=== PATIENT | male | born 1975 | race Caucasian/White ===

== ENCOUNTER 2016-11-24 06:04 | Emergency (ER) | payer BC ==
[2016-11-24] MEDS ORDERED: Ketorolac 60 MG/2 ML SDV IM ONE (06:16)
--- NOTE | 2016-11-24 06:21 | EDM.PDOC ---
ED HPI GENERAL MEDICAL PROBLEM - General Stated Complaint: LOWER BACK PAIN Time Seen by Provider: 11/24/16 06:12 - History of Present Illness INITIAL COMMENTS - FREE TEXT/NARRATIVE: HISTORY AND PHYSICAL: History of present illness: Patient's 41-year-old white male presents with a concern of 2 week history of left groin and testicle pain with some radiation to his left lower back the testicular pain seems to resolve completely this now is more in his groin with radiation to his lower back he denies urethral discharge denies trauma denies numbness weakness incontinence or retention of bowel or bladder this is somewhat worse with movement somewhat better with rest. Review of systems: As per history of present illness and below otherwise all systems reviewed and negative. Past medical history: As per history of present illness and as reviewed below otherwise noncontributory. Surgical history: As per history of present illness and as reviewed below otherwise noncontributory. Social history: No reported history of drug or alcohol abuse. Family history: As per history of present illness and as reviewed below otherwise noncontributory. Physical exam: HEENT: Atraumatic, normocephalic, pupils reactive, negative for conjunctival pallor or scleral icterus, mucous membranes moist, throat clear, neck supple, nontender, trachea midline. Lungs: Clear to auscultation, breath sounds equal bilaterally, chest nontender. Heart: S1S2, regular, negative for clicks, rubs, or JVD. Abdomen: Soft, nondistended, nontender. Negative for masses or hepatosplenomegaly. Negative for costovertebral tenderness. Pelvis: Stable nontender. Genitourinary: Penis and testicles are unremarkable there's no rash no lesions no discharge no obvious hernia no masses. Rectal: Deferred. Extremities: Atraumatic, negative for cords or calf pain. Neurovascular unremarkable. Neuro: Awake, alert, oriented. Cranial nerves II through XII unremarkable. Cerebellum unremarkable. Motor and sensory unremarkable throughout. Exam nonfocal. Back: Patient has some tenderness in the left lower back somewhat over his sciatic notch this is not consistent on exam is no vertebral body or point tenderness is able stand on his toes and back on his heels Diagnostics: CBC CMP UA CT abdomen and pelvis Therapeutics: Toradol 60 mg IM Impression: #1 intermittent left groin/testicle pain resolved #2 left lower back pain Definitive disposition and diagnosis as appropriate pending reevaluation and review of above. - Related Data Allergies Allergy/AdvReac Type Severity Reaction Status Date / Time No Known Allergies Allergy Verified 11/04/15 06:18 Home Meds: Home Meds . [No Known Home Meds] 11/04/15 [History] Past Medical History - Past Health History Medical/Surgical History: Denies Medical/Surgical History Cardiovascular History: Reports: None Other Cardiovascular History: 2012: heart attack Respiratory History: Reports: Asthma Gastrointestinal History: Reports: GERD Genitourinary History: Reports: None Musculoskeletal History: Reports: None Neurological History: Reports: None Psychiatric History: Reports: None Endocrine/Metabolic History: Reports: None Hematologic History: Reports: None Immunologic History: Reports: None Oncologic (Cancer) History: Reports: None Dermatologic History: Reports: None - Infectious Disease History Infectious Disease History: Reports: Chicken Pox - Past Surgical History Head Surgeries/Procedures: Reports: None HEENT Surgical History: Reports: Tonsillectomy Social & Family History - Family History Family Medical History: Noncontributory - Tobacco Use Smoking Status *Q: Current Every Day Smoker Years of Tobacco use: 20 Packs/Tins Daily: 1.5 Used Tobacco, but Quit: Yes Month Tobacco Last Used: 01/06/14 - Alcohol Use Days Per Week of Alcohol Use: 7 Number of Drinks Per Day: 6 Total Drinks Per Week: 42 - Recreational Drug Use Recreational Drug Use: Yes Drug Use in Last 12 Months: Yes Recreational Drug Type: Reports: Methamphetamine Recreational Drug Use Frequency: Daily Recreational Drug Last Use: 4 yrs ED ROS GENERAL - Review of Systems Review Of Systems: ROS reveals no pertinent complaints other than HPI. ED EXAM, GENERAL - Physical Exam Exam: See Below (See dictation) Course - Vital Signs Last Recorded V/S: Last Vital Signs Temp 36.0 C 11/24/16 06:12 Pulse 80 11/24/16 06:24 Resp 18 11/24/16 06:24 BP 132/85 11/24/16 06:24 Pulse Ox 97 11/24/16 06:24 - Orders/Labs/Meds Orders: Active Orders 24 hr Category Date Time Status Abdomen Pelvis wo Cont [CT] Stat Exams 11/24/16 06:09 Taken Labs: Laboratory Tests 11/24/16 11/24/16 11/24/16 Range/Units 06:10 06:18 06:18 WBC 8.31 (4.0-11.0) K/uL RBC 5.18 (4.50-5.90) M/uL Hgb 16.2 (13.0-17.0) g/dL Hct 46.6 (38.0-50.0) % MCV 90.0 (80.0-98.0) fL MCH 31.3 (27.0-32.0) pg MCHC 34.8 (31.0-37.0) g/dL RDW Std Deviation 44.0 (28.0-62.0) fl RDW Coeff of [place] 14 (11.0-15.0) % Plt Count 228 (150-400) K/uL MPV 10.50 (7.40-12.00) fL Neut % (Auto) 44.7 L (48.0-80.0) % Lymph % (Auto) 41.4 H (16.0-40.0) % [place] % (Auto) 11.0 (0.0-15.0) % Eos % (Auto) 2.4 (0.0-7.0) % Baso % (Auto) 0.5 (0.0-1.5) % Neut # (Auto) 3.7 (1.4-5.7) K/uL Lymph # (Auto) 3.4 H (0.6-2.4) K/uL [place] # (Auto) 0.9 H (0.0-0.8) K/uL Eos # (Auto) 0.2 (0.0-0.7) K/uL Baso # (Auto) 0.0 (0.0-0.1) K/uL Nucleated RBC % 0.0 /100WBC Nucleated RBCs # 0 K/uL Sodium 142 (136-146) mmol/L Potassium 4.1 (3.5-5.1) mmol/L Chloride 108 (98-110) mmol/L Carbon Dioxide 24 (21-31) mmol/L BUN 19 (6.0-23.0) mg/dL Creatinine 1.5 (0.6-1.5) mg/dL Est Cr Clr Drug Dosing 66.92 mL/min Estimated GFR (MDRD) 51.6 ml/min Glucose 90 (60-110) mg/dL Calcium 9.3 (8.8-10.8) mg/dL Total Bilirubin 0.3 (0.1-1.5) mg/dL AST 25 (5-40) IU/L ALT 61 H (8-54) IU/L Alkaline Phosphatase 70 (40-150) Total Protein 7.5 (6.0-8.0) g/dL Albumin 4.3 (3.5-5.0) g/dL Globulin 3.2 (2.0-3.5) g/dL Albumin/Globulin Ratio 1.3 (1.3-2.8) Urine Color YELLOW Urine Appearance CLEAR Urine pH 6.0 (5.0-8.0) Ur Specific [place] >= 1.030 (1.001-1.035) Urine Protein NEGATIVE (NEGATIVE) mg/dL Urine Glucose (UA) NEGATIVE (NEGATIVE) mg/dL Urine Ketones NEGATIVE (NEGATIVE) mg/dL Urine Occult Blood NEGATIVE (NEGATIVE) Urine Nitrite NEGATIVE (NEGATIVE) Urine Bilirubin NEGATIVE (NEGATIVE) Urine Urobilinogen 0.2 (<2.0) EU/dL Ur Leukocyte Esterase TRACE (NEGATIVE) Urine RBC 0-1 (0-2/HPF) Urine WBC 1-3 (0-5/HPF) Ur Epithelial Cells RARE (NONE-FEW) Urine Bacteria FEW (NEGATIVE) Urine Mucus LIGHT (NONE-MOD) Meds: Medications Discontinued Medications Generic Name Dose Route Start Last Admin Trade Name Flavio PRN Reason Stop Dose Admin Ketorolac Tromethamine 60 mg 11/24/16 06:16 11/24/16 06:22 Toradol IM 11/24/16 06:17 60 mg ONETIME ONE Administration Departure - Departure Time of Disposition: 06:16 Disposition: Home, Self-Care 01 Condition: Good Clinical Impression: Groin pain, Back pain - Discharge Information Additional Instructions: The following information is given to patients seen in the emergency department who are being discharged to home. This information is to outline your options for follow-up care. We provide all patients seen in our emergency department with a follow-up referral. The need for follow-up, as well as the timing and circumstances, are variable depending upon the specifics of your emergency department visit. If you don't have a primary care physician on staff, we will provide you with a referral. We always advise you to contact your personal physician following an emergency department visit to inform them of the circumstance of the visit and for follow-up with them and/or the need for any referrals to a consulting specialist. The emergency department will also refer you to a specialist when appropriate. This referral assures that you have the opportunity for followup care with a specialist. All of these measure are taken in an effort to provide you with optimal care, which includes your followup. Under all circumstances we always encourage you to contact your private physician who remains a resource for coordinating your care. When calling for followup care, please make the office aware that this follow-up is from your recent emergency room visit. If for any reason you are refused follow-up, please contact the [facility] emergency department at and asked to speak to the emergency department charge nurse. [facility] Primary Care [address] [place] [id number] [facility] Specialty Care - Urology [address] [place] [id number] Follow-up primary care urology as needed as discussed alternative prescribed return as needed as discussed - My Orders Last 24 Hours: My Active Orders 11/24/16 06:09 Abdomen Pelvis wo Cont [CT] Stat - Assessment/Plan Last 24 Hours: My Active Orders 11/24/16 06:09 Abdomen Pelvis wo Cont [CT] Stat
[2016-11-24 07:24] VITALS: BP 138/88
--- NOTE | 2016-11-24 11:59 | CT ---
EXAM DATE: 11/24/16 PATIENT'S AGE: 41 Patient: DMITRIY MEJÍA Facility: [place], [place] Site . Site : 1975 Study: CT Abdomen/Pelvis [id number]/19/2017 6:47:01 AM Ordering Physician: Doctor Boyd Final Report: INDICATION: SYMPTOMS BEGAN X 2 WEEKS AGO GROIN PAIN WITH RADIATION POSTERIORLY NOW HISTORY: Groin pain. COMPARISON: None. TECHNIQUE: CT of the abdomen and pelvis. No intravenous contrast. Coronal/sagittal reconstruction images. FINDINGS: Lung bases: There is no pleural or pericardial effusion. The heart size is normal. There is no acute airspace disease. There is no basilar pneumothorax. Abdomen/pelvis: Low-density hepatic lesions are too small further characterize, but likely benign cysts. No solid hepatic mass. No intrahepatic biliary dilatation. No perihepatic ascites. No adrenal mass. No hydronephrosis. No perinephric edema. Spleen size is normal. No pancreatic mass or pancreatic duct dilation. No glandular atrophy. There is no obstructive urolith. Calcifications in the pelvis are compatible with phleboliths. Prostate is within normal limits. There is no wall thickening within the small bowel or colon. There is diverticulosis. No findings for diverticulitis. No small bowel or colonic obstruction. Normal caliber appendix. No abdominal aortic aneurysm. No abdominal or pelvic lymphadenopathy. The bone windows demonstrate no suspicious lytic or blastic bone lesions. The alignment is preserved. IMPRESSION: 1. There are no acute findings seen to explain the patient`s abdominal pain. 2. There is no obstructive urolith, hydronephrosis, or perinephric edema. Calcifications in the pelvis represent phleboliths. 3. Diverticulosis of the colon. No associated inflammatory changes. 4. Normal caliber appendix. Dictated by John Gar MD @ 11/24/2016 7:00:31 AM Dictated by: John Gar MD @ 11/24/2016 07:00:45 (Electronic Signature) Report Signed by Proxy. [facility] HOSPITALEstefani
== END 2016-11-24 07:23 | disposition home or self-care (01) ==
LOC: MW.ED 06:04
DX: N50.812 Left testicular pain (principal); R10.30 Lower abdominal pain, unspecified; M54.5 Low back pain; J45.909 Unspecified asthma, uncomplicated; K21.9 Gastro-esophageal reflux disease without esophagitis; F17.210 Nicotine dependence, cigarettes, uncomplicated; Z98.890 Other specified postprocedural states
CPT/HCPCS: 36415; 74176; 80053; 81001; 85025; 96372; 99284; J1885; 99283

== ENCOUNTER 2017-03-31 16:38 | Emergency (ER) | payer SELFPAY ==
--- NOTE | 2017-03-31 17:14 | EDM.PDOC ---
ED HPI GENERAL MEDICAL PROBLEM - General Chief Complaint: Lower Extremity Injury/Pain Stated Complaint: LEFT FOOT PAIN Time Seen by Provider: 03/31/17 17:09 - History of Present Illness INITIAL COMMENTS - FREE TEXT/NARRATIVE: HISTORY AND PHYSICAL: History of present illness: Patient's 42-year-old white male with history of gout who presents with concern of pain in his first digit of his left foot and ankle similar to prior acute gouty episodes he denies fevers chills nausea vomiting trauma or other concern Review of systems: As per history of present illness and below otherwise all systems reviewed and negative. Past medical history: As per history of present illness and as reviewed below otherwise noncontributory. Surgical history: As per history of present illness and as reviewed below otherwise noncontributory. Social history: No reported history of drug or alcohol abuse. Family history: As per history of present illness and as reviewed below otherwise noncontributory. Physical exam: HEENT: Atraumatic, normocephalic, pupils reactive, negative for conjunctival pallor or scleral icterus, mucous membranes moist, throat clear, neck supple, nontender, trachea midline. Lungs: Clear to auscultation, breath sounds equal bilaterally, chest nontender. Heart: S1S2, regular, negative for clicks, rubs, or JVD. Abdomen: Soft, nondistended, nontender. Negative for masses or hepatosplenomegaly. Negative for costovertebral tenderness. Pelvis: Stable nontender. Genitourinary: Deferred. Rectal: Deferred. Extremities: Significant tenderness in the region of the distal first metatarsal left foot minimal erythema neurovascular exam is unremarkable Neuro: Awake, alert, oriented. Cranial nerves II through XII unremarkable. Cerebellum unremarkable. Motor and sensory unremarkable throughout. Exam nonfocal. Diagnostics: None Therapeutics: None Impression: # 1 acute gouty arthritis Definitive disposition and diagnosis as appropriate pending reevaluation and review of above. left great toe Pain Score (Numeric/FACES): 10 - Related Data Allergies Allergy/AdvReac Type Severity Reaction Status Date / Time No Known Allergies Allergy Verified 03/31/17 17:05 Home Meds: Home Meds . [No Known Home Meds] 11/04/15 [History] Past Medical History - Past Health History Medical/Surgical History: Denies Medical/Surgical History HEENT History: Reports: None Cardiovascular History: Reports: Other (See Below) Other Cardiovascular History: 2012: heart attack Respiratory History: Reports: Asthma Gastrointestinal History: Reports: GERD Genitourinary History: Reports: None Musculoskeletal History: Reports: None Neurological History: Reports: None Psychiatric History: Reports: None Endocrine/Metabolic History: Reports: None Hematologic History: Reports: None Immunologic History: Reports: None Oncologic (Cancer) History: Reports: None Dermatologic History: Reports: None - Infectious Disease History Infectious Disease History: Reports: Chicken Pox - Past Surgical History Head Surgeries/Procedures: Reports: None HEENT Surgical History: Reports: Tonsillectomy Cardiovascular Surgical History: Reports: None Respiratory Surgical History: Reports: None GI Surgical History: Reports: None Male Surgical History: Reports: None Endocrine Surgical History: Reports: None Neurological Surgical History: Reports: None Musculoskeletal Surgical History: Reports: None Dermatological Surgical History: Reports: None Social & Family History - Family History Family Medical History: Noncontributory Oncologic: Reports: Colon, Other (See Below) Other Oncologic Family History: testicle - Tobacco Use Smoking Status *Q: Current Every Day Smoker Years of Tobacco use: 30 Packs/Tins Daily: 0.4 Used Tobacco, but Quit: Yes Month Tobacco Last Used: 01/06/14 - Caffeine Use Caffeine Use: Reports: Coffee - Alcohol Use Days Per Week of Alcohol Use: 7 Number of Drinks Per Day: 6 Total Drinks Per Week: 42 - Recreational Drug Use Recreational Drug Use: No Drug Use in Last 12 Months: Yes Recreational Drug Type: Reports: Methamphetamine Recreational Drug Use Frequency: Daily Recreational Drug Last Use: 4 yrs Review of Systems - Review of Systems Review Of Systems: ROS reveals no pertinent complaints other than HPI. ED EXAM, GENERAL - Physical Exam Exam: See Below (See dictation) Course - Vital Signs Last Recorded V/S: Last Vital Signs Temp 36.6 C 03/31/17 17:05 Pulse 96 03/31/17 17:05 Resp 18 03/31/17 17:05 BP 134/89 03/31/17 17:05 Pulse Ox 98 03/31/17 17:05 Departure - Departure Time of Disposition: 17:12 Disposition: Home, Self-Care 01 Condition: Good Clinical Impression: Gout attack - Discharge Information Referrals: PCP,None [Primary Care Provider] - Additional Instructions: The following information is given to patients seen in the emergency department who are being discharged to home. This information is to outline your options for follow-up care. We provide all patients seen in our emergency department with a follow-up referral. The need for follow-up, as well as the timing and circumstances, are variable depending upon the specifics of your emergency department visit. If you don't have a primary care physician on staff, we will provide you with a referral. We always advise you to contact your personal physician following an emergency department visit to inform them of the circumstance of the visit and for follow-up with them and/or the need for any referrals to a consulting specialist. The emergency department will also refer you to a specialist when appropriate. This referral assures that you have the opportunity for followup care with a specialist. All of these measure are taken in an effort to provide you with optimal care, which includes your followup. Under all circumstances we always encourage you to contact your private physician who remains a resource for coordinating your care. When calling for followup care, please make the office aware that this follow-up is from your recent emergency room visit. If for any reason you are refused follow-up, please contact the [facility] emergency department at and asked to speak to the emergency department charge nurse. [facility] Primary Care [address] [place] [id number] [facility] Specialty Care - Orthopedic Clinic Professional [facility] [address] [place] [address], [address] [place] [address] Indocin as prescribed follow-up clinic and/or orthopedic clinic call to schedule appointment return as needed as discussed diet as directed avoid alcohol
[2017-03-31] MEDS ORDERED: Ketorolac 60 MG/2 ML SDV IM ONE (17:29)
[2017-03-31 17:49] VITALS: BP 120/78
== END 2017-03-31 17:45 | disposition home or self-care (01) ==
LOC: MW.ED 16:38
DX: M10.9 Gout, unspecified (principal); F17.210 Nicotine dependence, cigarettes, uncomplicated
CPT/HCPCS: 96372; 99283; J1885; 99282

== ENCOUNTER 2017-06-09 10:11 | Emergency (ER) | payer SELFPAY ==
--- NOTE | 2017-06-09 10:51 | EDM.PDOC ---
ED HPI GENERAL MEDICAL PROBLEM - General Chief Complaint: Lower Extremity Injury/Pain Stated Complaint: LT FOOT HURTS Time Seen by Provider: 06/09/17 10:35 Source of Information: Reports: Patient History Limitations: Reports: No Limitations - History of Present Illness INITIAL COMMENTS - FREE TEXT/NARRATIVE: HISTORY AND PHYSICAL: History of present illness: [Patient comes to the emergency room complaining of left great toe pain. Onset was 4 days ago and has gradually worsened. Denies trauma and injury. Has a long history of gout. Admits to alcohol use. most recently been drinking whiskey but he is cutting back on intake due to frequent gout flareups. He does not have a local primary care provider but wishes to establish. Has not taken any medication for his symptoms. No fever or chills. No chest pain shortness of breath and difficulty breathing. No abdominal pain. Denies any other medical conditions. No hypertension or kidney disease diabetes or heart disease.] Review of systems: As per history of present illness and below otherwise all systems reviewed and negative. Past medical history: As per history of present illness and as reviewed below otherwise noncontributory. Surgical history: As per history of present illness and as reviewed below otherwise noncontributory. Social history: No reported history of drug or alcohol abuse. Family history: As per history of present illness and as reviewed below otherwise noncontributory. Physical exam: HEENT: Atraumatic, normocephalic. Oral mucous membranes are pink and moist. Lungs: Clear to auscultation, breath sounds equal bilaterally. Heart: S1S2, regular rate and rhythm. Abdomen: Soft, nondistended, nontender. Pelvis: Stable nontender. Genitourinary: Deferred. Rectal: Deferred. Extremities: L great to is brightly erythematous and swollen. Exquisitely tender to palpation. Redness over medial metatarsals. Is otherwise atraumatic. Neurovascular unremarkable. Neuro: Awake, alert, oriented. Motor and sensory unremarkable throughout. Exam nonfocal. Diagnostics: [CBC, BMP, uric acid Impression: [gout, L toe] Plan: [Rx for indomethacin 50mg (#21) si po TID 0 RF's. Uric acid is elevated at 7.8. White blood cell 6.49, B1 20, creatinine 1.3. No ibuprofen with indomethacin. Push fluids, rest and elevate. Establish with local PCP. Referral given.] Definitive disposition and diagnosis as appropriate pending reevaluation and review of above. left foot Pain Score (Numeric/FACES): 7 - Related Data Allergies Allergy/AdvReac Type Severity Reaction Status Date / Time No Known Allergies Allergy Verified 06/09/17 10:18 Home Meds: Home Meds . [No Known Home Meds] 11/04/15 [History] Past Medical History - Past Health History Medical/Surgical History: Denies Medical/Surgical History HEENT History: Reports: None Cardiovascular History: Reports: Other (See Below) Other Cardiovascular History: 2012: heart attack Respiratory History: Reports: Asthma Gastrointestinal History: Reports: GERD Genitourinary History: Reports: None Musculoskeletal History: Reports: None Neurological History: Reports: None Psychiatric History: Reports: None Endocrine/Metabolic History: Reports: None Hematologic History: Reports: None Immunologic History: Reports: None Oncologic (Cancer) History: Reports: None Dermatologic History: Reports: None - Infectious Disease History Infectious Disease History: Reports: Chicken Pox - Past Surgical History Head Surgeries/Procedures: Reports: None HEENT Surgical History: Reports: Tonsillectomy Cardiovascular Surgical History: Reports: None Respiratory Surgical History: Reports: None GI Surgical History: Reports: None Male Surgical History: Reports: None Endocrine Surgical History: Reports: None Neurological Surgical History: Reports: None Musculoskeletal Surgical History: Reports: None Dermatological Surgical History: Reports: None Social & Family History - Family History Family Medical History: Noncontributory Oncologic: Reports: Colon, Other (See Below) Other Oncologic Family History: testicle - Tobacco Use Smoking Status *Q: Current Every Day Smoker Years of Tobacco use: 25 Packs/Tins Daily: 0.5 Used Tobacco, but Quit: Yes Month/Year Tobacco Last Used: 01/06/14 - Caffeine Use Caffeine Use: Reports: Coffee - Alcohol Use Days Per Week of Alcohol Use: 7 Number of Drinks Per Day: 6 Total Drinks Per Week: 42 - Recreational Drug Use Recreational Drug Use: Yes Drug Use in Last 12 Months: No Recreational Drug Type: Reports: Methamphetamine Recreational Drug Use Frequency: Daily Recreational Drug Last Use: 4 yrs Review of Systems - Review of Systems Review Of Systems: ROS reveals no pertinent complaints other than HPI. ED EXAM, GENERAL - Physical Exam Exam: See Below Course - Vital Signs Last Recorded V/S: Last Vital Signs Temp 97.6 F 06/09/17 10:18 Pulse 87 06/09/17 11:45 Resp 18 06/09/17 11:45 BP 116/81 06/09/17 11:45 Pulse Ox 99 06/09/17 11:45 - Orders/Labs/Meds Labs: Laboratory Tests 06/09/17 06/09/17 Range/Units 10:48 10:48 WBC 6.49 (4.0-11.0) K/uL RBC 5.21 (4.50-5.90) M/uL Hgb 16.0 (13.0-17.0) g/dL Hct 45.9 (38.0-50.0) % MCV 88.1 (80.0-98.0) fL MCH 30.7 (27.0-32.0) pg MCHC 34.9 (31.0-37.0) g/dL RDW Std Deviation 41.9 (28.0-62.0) fl RDW Coeff of Howard 13 (11.0-15.0) % Plt Count 222 (150-400) K/uL MPV 10.40 (7.40-12.00) fL Neut % (Auto) 55.0 (48.0-80.0) % Lymph % (Auto) 31.7 (16.0-40.0) % [place] % (Auto) 10.6 (0.0-15.0) % Eos % (Auto) 2.2 (0.0-7.0) % Baso % (Auto) 0.5 (0.0-1.5) % Neut # (Auto) 3.6 (1.4-5.7) K/uL Lymph # (Auto) 2.1 (0.6-2.4) K/uL [place] # (Auto) 0.7 (0.0-0.8) K/uL Eos # (Auto) 0.1 (0.0-0.7) K/uL Baso # (Auto) 0.0 (0.0-0.1) K/uL Nucleated RBC % 0.0 /100WBC Nucleated RBCs # 0 K/uL Sodium 138 (136-148) mmol/L Potassium 4.1 (3.5-5.1) mmol/L Chloride 103 (98-107) mmol/L Carbon Dioxide 23.3 (21.0-32.0) mmol/L BUN 20 H (7.0-18.0) mg/dL Creatinine 1.3 (0.8-1.3) mg/dL Est Cr Clr Drug Dosing 76.43 mL/min Estimated GFR (MDRD) > 60.0 ml/min Glucose 104 (74-106) mg/dL Uric Acid 7.8 H (2.6-7.2) mg/dL Calcium 9.4 (8.5-10.1) mg/dL Departure - Departure Time of Disposition: 11:15 Disposition: Home, Self-Care 01 Condition: Good Clinical Impression: Gout - Discharge Information Instructions: Gout, [id number] Referrals: PCP,None [Primary Care Provider] - Forms: ED Department Discharge Additional Instructions: The following information is given to patients seen in the emergency department who are being discharged to home. This information is to outline your options for follow-up care. We provide all patients seen in our emergency department with a follow-up referral. The need for follow-up, as well as the timing and circumstances, are variable depending upon the specifics of your emergency department visit. If you don't have a primary care physician on staff, we will provide you with a referral. We always advise you to contact your personal physician following an emergency department visit to inform them of the circumstance of the visit and for follow-up with them and/or the need for any referrals to a consulting specialist. The emergency department will also refer you to a specialist when appropriate. This referral assures that you have the opportunity for follow-up care with a specialist. All of these measure are taken in an effort to provide you with optimal care, which includes your follow-up. Under all circumstances we always encourage you to contact your private physician who remains a resource for coordinating your care. When calling for follow-up care, please make the office aware that this follow-up is from your recent emergency room visit. If for any reason you are refused follow-up, please contact the [facility] emergency department at and asked to speak to the emergency department charge nurse. [address] [address] Status care with a provider at the clinic listed above and follow-up there in 48 -72 hours. Do not take ibuprofen with indomethacin. Drink plenty of fluids. Return to ER as needed as discussed.
[2017-06-09 11:30] LABS: CHLORIDE,CL 103 mmol/L (98-107); SODIUM,NA 138 mmol/L (136-148)
[2017-06-09 11:50] VITALS: BP 116/81
== END 2017-06-09 11:45 | disposition home or self-care (01) ==
LOC: MW.ED 10:11
DX: M10.9 Gout, unspecified (principal); Z87.891 Personal history of nicotine dependence
CPT/HCPCS: 36415; 80048; 84550; 85025; 99283

== ENCOUNTER 2017-08-02 06:12 | Emergency (ER) | payer OTHER ==
--- NOTE | 2017-08-02 06:26 | EDM.PDOC ---
<Imtiaz Guardado - Last Filed: 08/02/17 06:38> ED HPI GENERAL MEDICAL PROBLEM - General Chief Complaint: Lower Extremity Injury/Pain Stated Complaint: PAIN IN RIGHT BIG TOE Time Seen by Provider: 08/02/17 06:25 Source of Information: Reports: Patient - History of Present Illness INITIAL COMMENTS - FREE TEXT/NARRATIVE: HISTORY AND PHYSICAL: History of present illness: 42-year-old male presenting to the [facility] department with chief complaint of right great toe pain starting last evening with past medical history of gout. patient states that last evening around 9 PM he began to have acute right toe pain. States that these had gout before in the other foot but this pain was more severe. Denies any associated fevers, chills, malaise or other signs of systemic infection. Up until this he has been feeling his normal self and has had no recent illnesses. Denies any history of ingrown toenails. The big toe is swollen and red which has progressed since last evening. Currently denies any chest pain, palpitations, shortness of breath, syncopal episodes, focal neurologic deficits. Review of systems: As per history of present illness and below otherwise all systems reviewed and negative. Past medical history: As per history of present illness and as reviewed below otherwise noncontributory. Surgical history: As per history of present illness and as reviewed below otherwise noncontributory. Social history: No reported history of drug or alcohol abuse. Family history: As per history of present illness and as reviewed below otherwise noncontributory. Physical exam: HEENT: Atraumatic, normocephalic, pupils reactive, negative for conjunctival pallor or scleral icterus, mucous membranes moist, throat clear, neck supple, nontender, trachea midline. Lungs: Clear to auscultation, breath sounds equal bilaterally, chest nontender. Heart: S1S2, regular, negative for clicks, rubs, or JVD. Abdomen: Soft, nondistended, nontender. Negative for masses or hepatosplenomegaly. Negative for costovertebral tenderness. Pelvis: Stable nontender. Genitourinary: Deferred. Rectal: Deferred. Extremities: Atraumatic, negative for cords or calf pain. Neurovascular unremarkable. Neuro: Awake, alert, oriented. Cranial nerves II through XII unremarkable. Cerebellum unremarkable. Motor and sensory unremarkable throughout. Exam nonfocal. Diagnostics: CBC, uric acid Therapeutics: Toradol 60 mg IM x1 Impression: Plan: [] right big toe Pain Score (Numeric/FACES): 9 - Related Data Allergies Allergy/AdvReac Type Severity Reaction Status Date / Time No Known Allergies Allergy Verified 08/02/17 06:28 Home Meds: Home Meds . [No Known Home Meds] 11/04/15 [History] Past Medical History - Past Health History Medical/Surgical History: Denies Medical/Surgical History HEENT History: Reports: None Cardiovascular History: Reports: Other (See Below) Other Cardiovascular History: 2012: heart attack Respiratory History: Reports: Asthma Gastrointestinal History: Reports: GERD Genitourinary History: Reports: None Musculoskeletal History: Reports: None Neurological History: Reports: None Psychiatric History: Reports: None Endocrine/Metabolic History: Reports: None Hematologic History: Reports: None Immunologic History: Reports: None Oncologic (Cancer) History: Reports: None Dermatologic History: Reports: None - Infectious Disease History Infectious Disease History: Reports: Chicken Pox - Past Surgical History Head Surgeries/Procedures: Reports: None HEENT Surgical History: Reports: Tonsillectomy Cardiovascular Surgical History: Reports: None Respiratory Surgical History: Reports: None GI Surgical History: Reports: None Male Surgical History: Reports: None Endocrine Surgical History: Reports: None Neurological Surgical History: Reports: None Musculoskeletal Surgical History: Reports: None Dermatological Surgical History: Reports: None Social & Family History - Family History Family Medical History: Noncontributory Oncologic: Reports: Colon, Other (See Below) Other Oncologic Family History: testicle - Caffeine Use Caffeine Use: Reports: Coffee Course - Vital Signs Last Recorded V/S: Last Vital Signs Temp 36.3 C 08/02/17 06:12 Pulse 79 08/02/17 06:12 Resp 18 08/02/17 06:12 BP 127/88 08/02/17 06:12 Pulse Ox 95 08/02/17 06:12 - Orders/Labs/Meds Labs: Laboratory Tests 08/02/17 08/02/17 Range/Units 06:55 06:55 WBC 11.59 H (4.0-11.0) K/uL RBC 5.25 (4.50-5.90) M/uL Hgb 16.5 (13.0-17.0) g/dL Hct 47.1 (38.0-50.0) % MCV 89.7 (80.0-98.0) fL MCH 31.4 (27.0-32.0) pg MCHC 35.0 (31.0-37.0) g/dL RDW Std Deviation 44.9 (28.0-62.0) fl RDW Coeff of Howard 14 (11.0-15.0) % Plt Count 219 (150-400) K/uL MPV 10.00 (7.40-12.00) fL Neut % (Auto) 71.8 (48.0-80.0) % Lymph % (Auto) 19.5 (16.0-40.0) % [place] % (Auto) 6.5 (0.0-15.0) % Eos % (Auto) 1.9 (0.0-7.0) % Baso % (Auto) 0.3 (0.0-1.5) % Neut # (Auto) 8.3 H (1.4-5.7) K/uL Lymph # (Auto) 2.3 (0.6-2.4) K/uL [place] # (Auto) 0.8 (0.0-0.8) K/uL Eos # (Auto) 0.2 (0.0-0.7) K/uL Baso # (Auto) 0.0 (0.0-0.1) K/uL Nucleated RBC % 0.0 /100WBC Nucleated RBCs # 0 K/uL Uric Acid 7.2 (2.6-7.2) mg/dL Meds: Medications Discontinued Medications Generic Name Dose Route Start Last Admin Trade Name Arbenq PRN Reason Stop Dose Admin Ketorolac Tromethamine 60 mg 08/02/17 06:38 08/02/17 06:46 Toradol IM 08/02/17 06:39 60 mg ONETIME ONE Administration Departure - Departure Disposition: Home, Self-Care 01 Clinical Impression: Toe pain, right - Discharge Information Referrals: Shashank Dhillon MD [Primary Care Provider] - Forms: ED Department Discharge Additional Instructions: The following information is given to patients seen in the emergency department who are being discharged to home. This information is to outline your options for follow-up care. We provide all patients seen in our emergency department with a follow-up referral. The need for follow-up, as well as the timing and circumstances, are variable depending upon the specifics of your emergency department visit. If you don't have a primary care physician on staff, we will provide you with a referral. We always advise you to contact your personal physician following an emergency department visit to inform them of the circumstance of the visit and for follow-up with them and/or the need for any referrals to a consulting specialist. The emergency department will also refer you to a specialist when appropriate. This referral assures that you have the opportunity for followup care with a specialist. All of these measure are taken in an effort to provide you with optimal care, which includes your followup. Under all circumstances we always encourage you to contact your private physician who remains a resource for coordinating your care. When calling for followup care, please make the office aware that this follow-up is from your recent emergency room visit. If for any reason you are refused follow-up, please contact the [facility] emergency department at and ask to speak to the emergency [place] [address] Dr Krissy Castillo [address] [place] [id number] [facility] Specialty clinic- Podiatry [address] [place] [phone] Fax: [phone] Ice and elevate the area and take all medications as prescribed to be a Insty Meds. Please call and schedule a follow-up appointment with either your provider or one of our bridge mechanic as we discussed for further care and evaluation. Return to ER as needed and as discussed. <Sheryl Bryan - Last Filed: 08/02/17 07:26> ED HPI GENERAL MEDICAL PROBLEM - History of Present Illness INITIAL COMMENTS - FREE TEXT/NARRATIVE: Dr. Bryan dictating an addendum note is a sincere of this case at 7 AM. I reviewed the CBC and uric acid and examined the patient. The right great toe itself is erythematous more around the nail base but it does extend upward and the patient says he does have a history of gout and he is concerned about that as well. There is no fluctuance appreciated no streaking up the foot and the toenail itself seems somewhat jaggedly. The first MP is somewhat discomforting and tender with palpation but it is not swollen. Neurovascular is intact in the foot We will proceed to cover him with anti-inflammatories short burst of steroids and some antibiotics and refer him to podiatry and he is comfortable with this care plan. He was offered a postop shoe and declines Impression: Right great toe pain, gout versus cellulitis Review of Systems - Review of Systems Review Of Systems: ROS reveals no pertinent complaints other than HPI. ED EXAM, GENERAL - Physical Exam Exam: See Below (See dictation) Departure - Departure Time of Disposition: 07:24 Condition: Good
[2017-08-02] MEDS ORDERED: Ketorolac 60 MG/2 ML SDV IM ONE (06:38)
[2017-08-02 08:54] VITALS: BP 136/91
== END 2017-08-02 07:44 | disposition home or self-care (01) ==
LOC: MW.ED 06:12
DX: M79.674 Pain in right toe(s) (principal)
CPT/HCPCS: 36415; 84550; 85025; 96372; 99283; J1885

== ENCOUNTER 2017-08-02 18:36 | Emergency (ER) | payer OTHER ==
[2017-08-02 19:11] VITALS: BP 159/49
--- NOTE | 2017-08-02 19:31 | EDM.PDOC ---
ED HPI GENERAL MEDICAL PROBLEM - General Chief Complaint: Lower Extremity Injury/Pain Stated Complaint: BIG RIGHT TOE- PAIN AND TURNING BLACK Time Seen by Provider: 08/02/17 19:31 Source of Information: Reports: Patient History Limitations: Reports: No Limitations - History of Present Illness INITIAL COMMENTS - FREE TEXT/NARRATIVE: HISTORY AND PHYSICAL: []42-year-old patient returning morning with a toe infection History of Present Illness: []"It's turning black" there is some bleeding at the days of the toenail The patient denies any injury with this Review of Systems: As per history of present illness and below otherwise all systems reviewed and negative. Past medical history: As per history of present illness and as reviewed below otherwise noncontributory. Surgical history: As per history of present illness and as reviewed below otherwise noncontributory. Social history: No reported history of drug or alcohol abuse. Family history: As per history of present illness and as reviewed below otherwise noncontributory. Physical exam: Alert gentleman who is writhing on the cart complaining of pain, answering questions in short sentences no shortness of breath noted. is at the bedside. HEENT: Atraumatic, normocehpalic, pupils reactive, negative for conjunctival pallor or scleral icterus, mucous membranes moist, throat clear, neck supple, nontender, trachea midline. Lungs: Clear to auscultation, breath sounds equal bilaterally, chest non tender. Heart: S1S2, regular, negative for clicks, rubs, or JVD. Abdomen: Soft, nondistended, nontender. Negative for masses or hepatossplenmegaly. Negative for costovertebral tenderness. Pelvis: Stable nontender. Genitourinary: Deferred. Rectal: Deferred Extremities: Atraumatic, negative for cords or calf pain. Neurovascular unremarkable. Neuro: Awake, alert, oriented. Cranial nerves II through XII unremarkable. Cerebellum unremarkable. Motor and sensory unremarkable throughout. Exam nonfocal. Digital block was performed on his great toe right foot Diagnostics: []X-ray great toe Therapeutics: []Dilaudid 0.5 IM Impression: []Paryonchia Plan: [Discharge home Hydrocodone for pain Follow-up with your primary care provider in 2 days for reevaluation Return to the emergency department as directed] Definitive disposition and diagnosis as appropriate pending reevaluation and review of above. Onset: Sudden Duration: Day(s):, Getting Worse Location: Reports: Lower Extremity, Left Quality: Reports: Throbbing Severity: Moderate Improves with: Reports: None Worsens with: Reports: None right big toe Pain Score (Numeric/FACES): 10 - Related Data Allergies Allergy/AdvReac Type Severity Reaction Status Date / Time No Known Allergies Allergy Verified 08/02/17 19:09 Home Meds: Home Meds . [No Known Home Meds] 11/04/15 [History] Past Medical History - Past Health History Medical/Surgical History: Denies Medical/Surgical History HEENT History: Reports: None Cardiovascular History: Reports: Other (See Below) Other Cardiovascular History: 2012: heart attack Respiratory History: Reports: Asthma Gastrointestinal History: Reports: GERD Genitourinary History: Reports: None Musculoskeletal History: Reports: None Neurological History: Reports: None Psychiatric History: Reports: None Endocrine/Metabolic History: Reports: None Hematologic History: Reports: None Immunologic History: Reports: None Oncologic (Cancer) History: Reports: None Dermatologic History: Reports: None - Infectious Disease History Infectious Disease History: Reports: Chicken Pox - Past Surgical History Head Surgeries/Procedures: Reports: None HEENT Surgical History: Reports: Tonsillectomy Cardiovascular Surgical History: Reports: None Respiratory Surgical History: Reports: None GI Surgical History: Reports: None Male Surgical History: Reports: None Endocrine Surgical History: Reports: None Neurological Surgical History: Reports: None Musculoskeletal Surgical History: Reports: None Dermatological Surgical History: Reports: None Social & Family History - Family History Family Medical History: Noncontributory Oncologic: Reports: Colon, Other (See Below) Other Oncologic Family History: testicle - Caffeine Use Caffeine Use: Reports: Coffee - Recreational Drug Use Recreational Drug Use: Yes Drug Use in Last 12 Months: No Review of Systems - Review of Systems Review Of Systems: ROS reveals no pertinent complaints other than HPI. ED EXAM, GENERAL - Physical Exam Exam: See Below (see dictation) ED TRAUMA EXTREMITY PROCEDURES - I&D Site: rt grt toe Skin Prep: Isopropyl Alcohol (Alcohol) Local Anesthesia: Lidocaine: 1% Plain Local Anesthetic Volume: 4cc Area Incised With: 11 Blade Drainage: Purulent Probed to Break Up Loculations: No Complications: No Course - Vital Signs Last Recorded V/S: Last Vital Signs Temp 36.6 C 08/02/17 19:09 Pulse 92 05/28/18 19:09 Resp 18 08/02/17 19:09 BP 159/49 H 08/02/17 19:09 Pulse Ox 98 08/02/17 19:09 - Orders/Labs/Meds Orders: Active Orders 24 hr Category Date Time Status Toes Great Toe Rt T5 [CR] Stat Exams 08/02/17 19:41 Taken Meds: Medications Discontinued Medications Generic Name Dose Route Start Last Admin Trade Name Flavio PRN Reason Stop Dose Admin Hydromorphone HCl 0.5 mg 08/02/17 19:33 08/02/17 20:02 Dilaudid IM 08/02/17 19:34 0.5 mg ONETIME ONE Administration Lidocaine HCl 20 ml 08/02/17 20:18 Xylocaine 1% INJECT 08/02/17 20:19 ONETIME ONE Departure - Departure Time of Disposition: 20:50 Disposition: Home, Self-Care 01 Condition: Good Clinical Impression: Toe pain, right, Paronychia - Discharge Information Referrals: PCP,None [Primary Care Provider] - Forms: ED Department Discharge Additional Instructions: The following information is given to patients seen in the emergency department who are being discharged to home. This information is to outline your options for follow-up care. We provide all patients seen in our emergency department with a follow-up referral. The need for follow-up, as well as the timing and circumstances, are variable depending upon the specifics of your emergency department visit. If you don't have a primary care physician on staff, we will provide you with a referral. We always advise you to contact your personal physician following an emergency department visit to inform them of the circumstance of the visit and for follow-up with them and/or the need for any referrals to a consulting specialist. The emergency department will also refer you to a specialist when appropriate. This referral assures that you have the opportunity for followup care with a specialist. All of these measure are taken in an effort to provide you with optimal care, which includes your followup. Under all circumstances we always encourage you to contact your private physician who remains a resource for coordinating your care. When calling for followup care, please make the office aware that this follow-up is from your recent emergency room visit. If for any reason you are refused follow-up, please contact the [facility] emergency department at and asked to speak to the emergency department charge nurse. You had a peryonchia which is infection below the toenail bed This was opened and allowed the pustular material to come out Epson salt water soaks 3 times a day No hard soled shoes at this time to irritate the toe Return to the emergency department as needed Follow-up with your primary care provider in 3 days - My Orders Last 24 Hours: My Active Orders 08/02/17 19:41 Toes Great Toe Rt T5 [CR] Stat - Assessment/Plan Last 24 Hours: My Active Orders 08/02/17 19:41 Toes Great Toe Rt T5 [CR] Stat
[2017-08-02] MEDS ORDERED: HYDROmorphone 2 MG/ML SDV IM ONE (19:33)
[2017-08-02] MEDS ORDERED: Lidocaine 1% 20 ML MDV INJECT ONE (20:18)
--- NOTE | 2017-08-03 15:20 | CR ---
EXAM DATE: 08/02/17 PATIENT'S AGE: 42 Patient: DMITRIY MEJÍA Facility: [place], [place] Site . Site : [id number] Study: XRay Extremity Right great toe [id number]/28/2018 7:50:43 PM Ordering Physician: Doctor Boyd Final Report: Pain 3 views of the right 1st toe. Findings: Normal alignment. No acute fracture. No acute osseous abnormalities. Mild soft tissue swelling. IMPRESSION: 1. No acute fracture or acute osseous abnormality. Dictated by Angelica Solis MD @ Aug 02 2017 8:09PM (Electronic Signature) Report Signed by Proxy. RAJINDER
== END 2017-08-02 21:18 | disposition home or self-care (01) ==
LOC: MW.ED 18:36
DX: L03.031 Cellulitis of right toe (principal); M79.674 Pain in right toe(s)
CPT/HCPCS: 10060; 36415; 73660; 84550; 85025; 96372; 99283; J1170; J1885

== ENCOUNTER 2018-06-22 11:48 | Emergency (ER) | payer OTHER ==
[2018-06-22] MEDS ORDERED: Albuterol/Ipratropium 3.0-0.5 MG/3 ML Neb Soln NEB ONE (11:59)
--- NOTE | 2018-06-22 12:01 | EDM.PDOC ---
ED HPI GENERAL MEDICAL PROBLEM - General Chief Complaint: Respiratory Problem Stated Complaint: RIB PAIN Time Seen by Provider: 06/22/18 11:57 - History of Present Illness INITIAL COMMENTS - FREE TEXT/NARRATIVE: HISTORY AND PHYSICAL: History of present illness: Patient's 43-year-old white male presents with concern of cough and left rib pain especially over last several days patient is a smoker he's currently trying to quit he has used his inhaler at home with mild improvement. He denies fever chills nausea vomiting denies direct trauma or other concern. Review of systems: As per history of present illness and below otherwise all systems reviewed and negative. Past medical history: As per history of present illness and as reviewed below otherwise noncontributory. Surgical history: As per history of present illness and as reviewed below otherwise noncontributory. Social history: No reported history of drug or alcohol abuse. Family history: As per history of present illness and as reviewed below otherwise noncontributory. Physical exam: HEENT: Atraumatic, normocephalic, pupils reactive, negative for conjunctival pallor or scleral icterus, mucous membranes moist, throat clear, neck supple, nontender, trachea midline. Lungs: End expiratory wheezing slightly diminished, breath sounds equal bilaterally, chest nontender. Heart: S1S2, regular, negative for clicks, rubs, or JVD. Abdomen: Soft, nondistended, nontender. Negative for masses or hepatosplenomegaly. Negative for costovertebral tenderness. Pelvis: Stable nontender. Genitourinary: Deferred. Rectal: Deferred. Extremities: Atraumatic, negative for cords or calf pain. Neurovascular unremarkable. Neuro: Awake, alert, oriented. Cranial nerves II through XII unremarkable. Cerebellum unremarkable. Motor and sensory unremarkable throughout. Exam nonfocal. Diagnostics: Chest x-ray with left ribs Therapeutics: Albuterol ipratropium nebulizer Impression: #1 reactive airway disease #2 muscle skeletal rib pain Definitive disposition and diagnosis as appropriate pending reevaluation and review of above. - Related Data Allergies Allergy/AdvReac Type Severity Reaction Status Date / Time No Known Allergies Allergy Verified 06/22/18 11:59 Home Meds: Home Meds Indomethacin 50 mg PO TID 12/17/17 [History] Albuterol [Proventil Neb Soln] 0.63 mg NEB Q2H 06/22/18 [History] Past Medical History - Past Health History Medical/Surgical History: Denies Medical/Surgical History HEENT History: Reports: None Cardiovascular History: Reports: ID Other Cardiovascular History: 2012: heart attack Respiratory History: Reports: Asthma Gastrointestinal History: Reports: GERD Genitourinary History: Reports: None Musculoskeletal History: Reports: None Neurological History: Reports: None Psychiatric History: Reports: None Endocrine/Metabolic History: Reports: None Hematologic History: Reports: None Immunologic History: Reports: None Oncologic (Cancer) History: Reports: None Dermatologic History: Reports: None - Infectious Disease History Infectious Disease History: Reports: Chicken Pox - Past Surgical History Head Surgeries/Procedures: Reports: None HEENT Surgical History: Reports: Tonsillectomy Cardiovascular Surgical History: Reports: None Respiratory Surgical History: Reports: None GI Surgical History: Reports: None Male Surgical History: Reports: None Endocrine Surgical History: Reports: None Neurological Surgical History: Reports: None Musculoskeletal Surgical History: Reports: None Dermatological Surgical History: Reports: None Social & Family History - Family History Family Medical History: Noncontributory Oncologic: Reports: Colon, Other (See Below) Other Oncologic Family History: testicle - Caffeine Use Caffeine Use: Reports: Soda ED ROS GENERAL - Review of Systems Review Of Systems: ROS reveals no pertinent complaints other than HPI. ED EXAM, GENERAL - Physical Exam Exam: See Below (See dictation) Course - Vital Signs Last Recorded V/S: Last Vital Signs Temp 36.4 C 06/22/18 12:00 Pulse 86 06/22/18 12:00 Resp 18 06/22/18 12:00 BP 124/77 06/22/18 12:00 Pulse Ox 96 06/22/18 12:00 - Orders/Labs/Meds Orders: Active Orders 24 hr Category Date Time Status RT Aerosol Therapy [RC] ASDIRECTED Care 06/22/18 12:00 Active Ribs 2V w Chest Lt [CR] Stat Exams 06/22/18 11:59 Taken Meds: Medications Discontinued Medications Generic Name Dose Route Start Last Admin Trade Name Freq PRN Reason Stop Dose Admin Albuterol/Ipratropium 3 ml 06/22/18 11:59 06/22/18 12:14 Duoneb 3.0-0.5 Mg/3 Ml NEB 06/22/18 12:00 3 ml ONETIME ONE Administration Departure - Departure Time of Disposition: 12:41 Disposition: Home, Self-Care 01 Condition: Good Clinical Impression: Tracheobronchitis - Discharge Information Referrals: PCP,None [Primary Care Provider] - Forms: ED Department Discharge Additional Instructions: The following information is given to patients seen in the emergency department who are being discharged to home. This information is to outline your options for follow-up care. We provide all patients seen in our emergency department with a follow-up referral. The need for follow-up, as well as the timing and circumstances, are variable depending upon the specifics of your emergency department visit. If you don't have a primary care physician on staff, we will provide you with a referral. We always advise you to contact your personal physician following an emergency department visit to inform them of the circumstance of the visit and for follow-up with them and/or the need for any referrals to a consulting specialist. The emergency department will also refer you to a specialist when appropriate. This referral assures that you have the opportunity for followup care with a specialist. All of these measure are taken in an effort to provide you with optimal care, which includes your followup. Under all circumstances we always encourage you to contact your private physician who remains a resource for coordinating your care. When calling for followup care, please make the office aware that this follow-up is from your recent emergency room visit. If for any reason you are refused follow-up, please contact the [facility] emergency department at and asked to speak to the emergency department charge nurse. Z-Rickie Medrol Phenergan With Codeine as prescribed stop smoking follow-up private medical doctor return as needed as discussed - My Orders Last 24 Hours: My Active Orders 06/22/18 11:59 Ribs 2V w Chest Lt [CR] Stat 06/22/18 12:00 RT Aerosol Therapy [RC] ASDIRECTED - Assessment/Plan Last 24 Hours: My Active Orders 06/22/18 11:59 Ribs 2V w Chest Lt [CR] Stat 06/22/18 12:00 RT Aerosol Therapy [RC] ASDIRECTED
[2018-06-22 12:55] VITALS: BP 127/90
--- NOTE | 2018-06-22 12:59 | CR ---
EXAMINATION: PA chest and left RIBS HISTORY: Pain. FINDINGS: The trachea is midline. The cardiomediastinal silhouette is within normal limits. No pulmonary infiltrates, effusions or pneumothorax. Osseous structures appear unremarkable. IMPRESSION: No acute cardiopulmonary process.
== END 2018-06-22 12:53 | disposition home or self-care (01) ==
LOC: MW.ED 11:48
DX: J40 Bronchitis, not specified as acute or chronic (principal); R07.81 Pleurodynia; K21.9 Gastro-esophageal reflux disease without esophagitis; I25.2 Old myocardial infarction; Z79.899 Other long term (current) drug therapy
CPT/HCPCS: 71101-26-LT; 71101-LT; 94640; 99283; 99283-25; J7620-GY

== ENCOUNTER 2018-09-15 07:16 | Emergency (ER) | payer OTHER ==
[2018-09-15] MEDS ORDERED: Sodium Chloride 0.9% 10 ML Syringe FLUSH PRN (07:38)
[2018-09-15] MEDS ORDERED: Sodium Chloride 0.9% 2.5 ML Syringe FLUSH PRN (07:38)
--- NOTE | 2018-09-15 07:48 | EDM.PDOC ---
ED HPI GENERAL MEDICAL PROBLEM - General Chief Complaint: Upper Extremity Injury/Pain Stated Complaint: PAIN IN ARM/DIZZYNESS Time Seen by Provider: 09/15/18 07:42 - History of Present Illness INITIAL COMMENTS - FREE TEXT/NARRATIVE: 43 y/o male with history of gout presenting to the ER after he states he woke up this morning with left wrist pain. Took his allopurinol and indomethacin x2 doses. Went to work and at work pain still persisted. Drove himself to the ER from work. Denies any nausea, diaphoresis. No neck or left arm radiation. In the ER, he endorses left chest pain since this morning about 1 hour ago. Rated 5/10. Localized to left chest area. Denies any heavy lifting, injury to chest area. He works in a physically demanding job. No injuries to hands, chest or back. States he takes hydrocodone for chronic pain but did not take that this morning since he was going to work. Former smoker. No history of heart disease or dyslipidemia. Left Wrist Pain Score (Numeric/FACES): 4 - Related Data Allergies Allergy/AdvReac Type Severity Reaction Status Date / Time No Known Allergies Allergy Verified 09/15/18 07:25 Home Meds: Home Meds Indomethacin 50 mg PO TID PRN 12/17/17 [History] Albuterol Sulfate 0.63 mg IH ASDIRECTED PRN 09/15/18 [History] Allopurinol [Zyloprim] 300 mg PO DAILY 09/15/18 [History] Cetirizine [ZyrTEC] 10 mg PO DAILY 09/15/18 [History] Past Medical History - Past Health History Medical/Surgical History: Denies Medical/Surgical History HEENT History: Reports: None Cardiovascular History: Reports: [place] Other Cardiovascular History: 2012: heart attack Respiratory History: Reports: Asthma Gastrointestinal History: Reports: GERD Genitourinary History: Reports: None Musculoskeletal History: Reports: None Neurological History: Reports: None Psychiatric History: Reports: None Endocrine/Metabolic History: Reports: None Hematologic History: Reports: None Immunologic History: Reports: None Oncologic (Cancer) History: Reports: None Dermatologic History: Reports: None - Infectious Disease History Infectious Disease History: Reports: Chicken Pox - Past Surgical History Head Surgeries/Procedures: Reports: None HEENT Surgical History: Reports: Tonsillectomy Cardiovascular Surgical History: Reports: None Respiratory Surgical History: Reports: None GI Surgical History: Reports: None Male Surgical History: Reports: None Endocrine Surgical History: Reports: None Neurological Surgical History: Reports: None Musculoskeletal Surgical History: Reports: None Dermatological Surgical History: Reports: None Social & Family History - Family History Family Medical History: Noncontributory Oncologic: Reports: Colon, Other (See Below) Other Oncologic Family History: testicle - Tobacco Use Smoking Status *Q: Former Smoker Years of Tobacco use: 24 Packs/Tins Daily: 1 Used Tobacco, but Quit: No Second Hand Smoke Exposure: No - Caffeine Use Caffeine Use: Reports: None - Alcohol Use Days Per Week of Alcohol Use: 7 Number of Drinks Per Day: 2 Total Drinks Per Week: 14 - Recreational Drug Use Recreational Drug Use: No Review of Systems - Review of Systems Review Of Systems: ROS reveals no pertinent complaints other than HPI. ED EXAM, GENERAL - Physical Exam Exam: See Below General Appearance: Alert, WD/WN, No Apparent Distress Respiratory/Chest: No Respiratory Distress, Lungs Clear, Normal Breath Sounds Cardiovascular: Regular Rate, Rhythm, No Edema, No JVD, No Murmur Extremities: Other (left wrist- no edema, erythema. Not warm. Tender on wrist area. Positive Tinnel and Phalen test. Sensation and strength intact.) Neurological: Alert Skin Exam: Warm, Dry Course - Vital Signs Text/Narrative:: EKG negative for ST elevation. Ordered CMP, uric acid level. Wrist xray. Uric acid level WNL. No acute findings, fractures on left wrist xray. Last Recorded V/S: Last Vital Signs Temp 35.9 C 09/15/18 07:29 Pulse 74 09/15/18 07:29 Resp 13 09/15/18 07:29 BP 147/108 H 09/15/18 07:29 Pulse Ox 96 09/15/18 07:29 - Orders/Labs/Meds Orders: Active Orders 24 hr Category Date Time Status EKG Documentation Completion [RC] STAT Care 09/15/18 07:38 Active Wrist Comp Min 3V Lt [CR] Stat Exams 09/15/18 07:38 Taken Sodium Chloride 0.9% [Saline Flush] Med 09/15/18 07:38 Active 10 ml FLUSH ASDIRECTED PRN Sodium Chloride 0.9% [Saline Flush] Med 09/15/18 07:38 Active 2.5 ml FLUSH ASDIRECTED PRN Saline Lock Insert [OM.PC] Stat Oth 09/15/18 07:38 Ordered Medication Orders Sodium Chloride (Saline Flush) 10 ml FLUSH ASDIRECTED PRN PRN Reason: Keep Vein Open Last Admin: 09/15/18 07:43 Dose: 10 ml Sodium Chloride (Saline Flush) 2.5 ml FLUSH ASDIRECTED PRN PRN Reason: Keep Vein Open Last Admin: 09/15/18 07:43 Dose: 2.5 ml Labs: Laboratory Tests 09/15/18 Range/Units 07:48 Sodium 139 (136-148) mmol/L Potassium 4.3 (3.5-5.1) mmol/L Chloride 104 (98-107) mmol/L Carbon Dioxide 24.9 (21.0-32.0) mmol/L BUN 20 H (7.0-18.0) mg/dL Creatinine 1.2 (0.8-1.3) mg/dL Est Cr Clr Drug Dosing 81.96 mL/min Estimated GFR (MDRD) > 60.0 ml/min Glucose 115 H (74-106) mg/dL Uric Acid 2.8 (2.6-7.2) mg/dL Calcium 9.3 (8.5-10.1) mg/dL Total Bilirubin 0.4 (0.2-1.0) mg/dL AST 50 H (15-37) IU/L ALT 119 H (14-63) IU/L Alkaline Phosphatase 63 (46-116) U/L Total Protein 7.2 (6.4-8.2) g/dL Albumin 3.9 (3.4-5.0) g/dL Globulin 3.3 (2.6-4.0) g/dL Albumin/Globulin Ratio 1.2 (0.9-1.6) Meds: Medications Generic Name Dose Route Start Last Admin Trade Name Freq PRN Reason Stop Dose Admin Sodium Chloride 10 ml 09/15/18 07:38 09/15/18 07:43 Saline Flush FLUSH 10 ml ASDIRECTED PRN Administration Keep Vein Open Sodium Chloride 2.5 ml 09/15/18 07:38 09/15/18 07:43 Saline Flush FLUSH 2.5 ml ASDIRECTED PRN Administration Keep Vein Open Discontinued Medications Generic Name Dose Route Start Last Admin Trade Name Freq PRN Reason Stop Dose Admin Ketorolac Tromethamine 30 mg 09/15/18 08:19 09/15/18 08:36 Toradol IM 09/15/18 08:20 30 mg ONETIME ONE Administration Departure - Departure Time of Disposition: 08:41 Disposition: Home, Self-Care 01 Clinical Impression: Wrist pain, left, Carpal tunnel syndrome - Discharge Information *PRESCRIPTION DRUG MONITORING PROGRAM REVIEWED*: Not Applicable *COPY OF PRESCRIPTION DRUG MONITORING REPORT IN PATIENT [place]: Not Applicable Instructions: Wrist Pain, Adult, Vneo-co-Lmon, Carpal Tunnel Syndrome, Easy-to- Read Referrals: Shashank Dhillon MD [Primary Care Provider] - Forms: ED Department Discharge Additional Instructions: The following information is given to patients seen in the emergency department who are being discharged to home. This information is to outline your options for follow-up care. We provide all patients seen in our emergency department with a follow-up referral. The need for follow-up, as well as the timing and circumstances, are variable depending upon the specifics of your emergency department visit. If you don't have a primary care physician on staff, we will provide you with a referral. We always advise you to contact your personal physician following an emergency department visit to inform them of the circumstance of the visit and for follow-up with them and/or the need for any referrals to a consulting specialist. The emergency department will also refer you to a specialist when appropriate. This referral assures that you have the opportunity for follow-up care with a specialist. All of these measure are taken in an effort to provide you with optimal care, which includes your follow-up. Under all circumstances we always encourage you to contact your private physician who remains a resource for coordinating your care. When calling for follow-up care, please make the office aware that this follow-up is from your recent emergency room visit. If for any reason you are refused follow-up, please contact the [facility] Emergency Department at and asked to speak to the emergency department charge nurse. Follow-up with your PCP for left wrist pain, carpal tunnel syndrome. - My Orders Last 24 Hours: My Active Orders 09/15/18 07:38 EKG Documentation Completion [RC] STAT Wrist Comp Min 3V Lt [CR] Stat Sodium Chloride 0.9% [Saline Flush] 10 ml FLUSH ASDIRECTED PRN Sodium Chloride 0.9% [Saline Flush] 2.5 ml FLUSH ASDIRECTED PRN Saline Lock Insert [OM.PC] Stat - Assessment/Plan Last 24 Hours: My Active Orders 09/15/18 07:38 EKG Documentation Completion [RC] STAT Wrist Comp Min 3V Lt [CR] Stat Sodium Chloride 0.9% [Saline Flush] 10 ml FLUSH ASDIRECTED PRN Sodium Chloride 0.9% [Saline Flush] 2.5 ml FLUSH ASDIRECTED PRN Saline Lock Insert [OM.PC] Stat
[2018-09-15 08:16] LABS: CHLORIDE,CL 104 mmol/L (98-107); SODIUM,NA 139 mmol/L (136-148)
[2018-09-15] MEDS ORDERED: Ketorolac 30 MG/ML SDV IM ONE (08:19)
--- NOTE | 2018-09-15 08:44 | CR ---
INDICATION: Wrist pain, history of gout. TECHNIQUE: Three views of the left wrist. COMPARISON: None available. FINDINGS: No definite acute fracture. The carpal bones are anatomically aligned. No intrinsic bone lesion. No significant degenerative change. There are no suspicious soft tissue abnormalities. IMPRESSION: No definite acute fracture. If there is severe or persistent pain consider MRI or follow-up radiographs in 10-14 days after splinting the patient. Dictated by Saqib Quintero MD @ Sep 15 2018 8:39AM Signed by Dr. Saqib Quintero @ Sep 15 2018 8:41AM
[2018-09-15 08:47] VITALS: BP 123/85
== END 2018-09-15 09:01 | disposition home or self-care (01) ==
LOC: MW.ED 07:16
DX: G56.02 Carpal tunnel syndrome, left upper limb (principal); I25.2 Old myocardial infarction; J45.909 Unspecified asthma, uncomplicated; K21.9 Gastro-esophageal reflux disease without esophagitis; Z79.899 Other long term (current) drug therapy; Z87.891 Personal history of nicotine dependence
CPT/HCPCS: 36415; 73110; 80053; 84550; 93005; 96372; 99284; J1885

== ENCOUNTER 2018-09-28 18:50 | Emergency (ER) | payer OTHER ==
[2018-09-28] MEDS ORDERED: Ketorolac 60 MG/2 ML SDV IM ONE (19:26)
--- NOTE | 2018-09-28 19:28 | EDM.PDOC ---
ED HPI GENERAL MEDICAL PROBLEM - General Chief Complaint: Back Pain or Injury Stated Complaint: INJURED BACK Time Seen by Provider: 09/28/18 19:28 Source of Information: Reports: Patient History Limitations: Reports: No Limitations - History of Present Illness INITIAL COMMENTS - FREE TEXT/NARRATIVE: HISTORY AND PHYSICAL: History of present illness: Patient is a 43-year-old male presents to the ED with complaint of back pain. He states he was [place] [employer] today trying to surf multiple falls while taking this. reports pain on the right lower back with some pain into his right foot. He denies saddle anesthesia, loss of bowel or bladder control, or extremity weakness, fevers or chills. Denies head injury. Review of systems: As per history of present illness and below otherwise all systems reviewed and negative. Past medical history: As per history of present illness and as reviewed below otherwise noncontributory. Surgical history: As per history of present illness and as reviewed below otherwise noncontributory. Social history: No reported history of drug or alcohol abuse. Family history: As per history of present illness and as reviewed below otherwise noncontributory. Physical exam: General: Patient sitting comfortably in no acute distress and nontoxic appearing HEENT: Atraumatic, normocephalic, pupils reactive, negative for conjunctival pallor or scleral icterus, mucous membranes moist, throat clear, neck supple, nontender, trachea midline. No meningeal signs. Lungs: Clear to auscultation, breath sounds equal bilaterally, chest nontender. Heart: S1S2, regular, negative for clicks, rubs, or overt murmur. Abdomen: Soft, nondistended, nontender. Negative for masses or hepatosplenomegaly. Negative for costovertebral tenderness. No rigidity, rebound , guarding. Pelvis: Stable nontender. Genitourinary: Deferred. Rectal: Deferred. Spine: Pain to palpation of the lumbar spine with right paraspinal tenderness to palpation. Extremities: Atraumatic, negative for cords or calf pain. Neurovascular unremarkable. Neuro: Awake, alert, oriented. Cranial nerves II through XII unremarkable. Cerebellum unremarkable. Motor and sensory unremarkable throughout. Exam nonfocal. Notes: Diagnostics: Lumbar x-ray Therapeutics: Toradol 60mg IM Norflex 60mg IM Prescriptions: Impression: Lumbar back pain Plan: Alternate Tylenol and ibuprofen as needed. Take Norflex as needed as instructed. Don't take this with your [place] as It may increase drowsiness and do not take while driving. follow-up with primary care provider Return to ED as needed as discussed Definitive disposition and diagnosis as appropriate pending reevaluation and review of above. right side back Pain Score (Numeric/FACES): 8 - Related Data Allergies Allergy/AdvReac Type Severity Reaction Status Date / Time No Known Allergies Allergy Verified 09/28/18 18:53 Home Meds: Home Meds Indomethacin 50 mg PO TID PRN 12/17/17 [History] Albuterol Sulfate 0.63 mg IH ASDIRECTED PRN 09/15/18 [History] Allopurinol [Zyloprim] 300 mg PO DAILY 09/15/18 [History] Cetirizine [ZyrTEC] 10 mg PO DAILY 09/15/18 [History] Hydrocodone/Acetaminophen [Hydrocodon-Acetaminophen 5-325] 1 each PO ASDIRECTED 09/28/18 [History] Past Medical History - Past Health History Medical/Surgical History: Denies Medical/Surgical History HEENT History: Reports: None Cardiovascular History: Reports: [place] Other Cardiovascular History: 2012: heart attack Respiratory History: Reports: Asthma Gastrointestinal History: Reports: GERD Genitourinary History: Reports: None Musculoskeletal History: Reports: Gout Neurological History: Reports: None Psychiatric History: Reports: None Endocrine/Metabolic History: Reports: None Hematologic History: Reports: None Immunologic History: Reports: None Oncologic (Cancer) History: Reports: None Dermatologic History: Reports: None - Infectious Disease History Infectious Disease History: Reports: Chicken Pox - Past Surgical History Head Surgeries/Procedures: Reports: None HEENT Surgical History: Reports: Tonsillectomy Cardiovascular Surgical History: Reports: None Respiratory Surgical History: Reports: None GI Surgical History: Reports: None Male Surgical History: Reports: None Endocrine Surgical History: Reports: None Neurological Surgical History: Reports: None Musculoskeletal Surgical History: Reports: None Dermatological Surgical History: Reports: None Social & Family History - Family History Family Medical History: Noncontributory Oncologic: Reports: Colon, Other (See Below) Other Oncologic Family History: testicle - Tobacco Use Smoking Status *Q: Current Every Day Smoker Years of Tobacco use: 2 Packs/Tins Daily: 0.1 - Caffeine Use Caffeine Use: Reports: None - Recreational Drug Use Recreational Drug Use: Yes Drug Use in Last 12 Months: No ED ROS GENERAL - Review of Systems Review Of Systems: ROS reveals no pertinent complaints other than HPI. ED EXAM,LOWER BACK PAIN/INJURY - Physical Exam Exam: See Below (see dictation) Course - Vital Signs Last Recorded V/S: Last Vital Signs Temp 97.6 F 09/28/18 18:55 Pulse 68 09/28/18 18:55 Resp 18 09/28/18 18:55 BP 141/102 H 09/28/18 18:55 Pulse Ox 98 09/28/18 18:55 - Orders/Labs/Meds Meds: Medications Discontinued Medications Generic Name Dose Route Start Last Admin Trade Name [place] PRN Reason Stop Dose Admin Ketorolac Tromethamine 60 mg 09/28/18 19:26 09/28/18 19:46 Toradol IM 09/28/18 19:27 60 mg ONETIME ONE Administration Orphenadrine Citrate 60 mg 09/28/18 19:27 09/28/18 19:50 Norflex IM 09/28/18 19:28 60 mg NOW ONE Administration Departure - Departure Time of Disposition: 20:04 Disposition: Home, Self-Care 01 Condition: Good Clinical Impression: Lumbar back pain - Discharge Information Referrals: PCP,None [Primary Care Provider] - Forms: ED Department Discharge Additional Instructions: The following information is given to patients seen in the emergency department who are being discharged to home. This information is to outline your options for follow-up care. We provide all patients seen in our emergency department with a follow-up referral. The need for follow-up, as well as the timing and circumstances, are variable depending upon the specifics of your emergency department visit. If you don't have a primary care physician on staff, we will provide you with a referral. We always advise you to contact your personal physician following an emergency department visit to inform them of the circumstance of the visit and for follow-up with them and/or the need for any referrals to a consulting specialist. The emergency department will also refer you to a specialist when appropriate. This referral assures that you have the opportunity for follow-up care with a specialist. All of these measure are taken in an effort to provide you with optimal care, which includes your follow-up. Under all circumstances we always encourage you to contact your private physician who remains a resource for coordinating your care. When calling for follow-up care, please make the office aware that this follow-up is from your recent emergency room visit. If for any reason you are refused follow-up, please contact the [facility] Emergency Department at and asked to speak to the emergency department charge nurse. [facility] [address] [place] [id number] [facility] [address] [place] [id number] Alternate Tylenol and ibuprofen as needed. Take Norflex as needed as instructed. Don't take this with your [place] as It may increase drowsiness and do not take while driving. follow-up with primary care provider Return to ED as needed as discussed
--- NOTE | 2018-09-28 19:53 | CR ---
INDICATION: Lumbar spine pain, fall TECHNIQUE: Lumbar spine radiograph 3 views COMPARISON: None FINDINGS: Bone: No acute fractures or aggressive bone lesions are identified. Alignment is normal. Disc: The disc spaces are unremarkable in appearance. The facet joints are unremarkable. Soft tissue: Unremarkable. No radiopaque foreign bodies are seen. IMPRESSION: 1. No acute osseous injuries or abnormalities are noted. Dictated by: Moe Glasgow MD @ 09/28/2018 19:52:26 (Electronically Signed)
[2018-09-28 20:29] VITALS: BP 149/100
== END 2018-09-28 20:19 | disposition home or self-care (01) ==
LOC: MW.ED 18:50
DX: M54.5 Low back pain (principal); I25.2 Old myocardial infarction; F17.210 Nicotine dependence, cigarettes, uncomplicated; Z79.899 Other long term (current) drug therapy
CPT/HCPCS: 72100; 96372; 99283; J1885; J2360

== ENCOUNTER 2019-04-22 06:42 | Emergency (ER) | payer OTHER ==
--- NOTE | 2019-04-22 07:28 | EDM.PDOC ---
ED HPI GENERAL MEDICAL PROBLEM - General Chief Complaint: Abdominal Pain Stated Complaint: PAIN IN LOWER STOMACH ABOVE GROIN AND LOWER BACK Time Seen by Provider: 04/22/19 07:27 Source of Information: Reports: Patient - History of Present Illness INITIAL COMMENTS - FREE TEXT/NARRATIVE: Patient reports that he frequently notices the abdominal pain while at work. 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 As a separate issue, he complains of low back pain, also for 2 weeks. Does not radiate into his groin, chest, or extremities. It is achy without any ripping or tearing character. No radiation to the legs. No loss of bladder or bowel control. Pain is 4 out of 10. No personal family history of abdominal aortic aneurysm. Has seen a chiropractor for the same pain. It is neither better nor worse. Is after he works. 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 Duration: Week(s): (2 weeks) Location: Reports: Other (LLQ, into L inguinal region) Quality: Reports: Ache, Pressure Severity: Moderate Improves with: Reports: None Worsens with: Reports: Other (twists at the waist) Abdomen Pain Score (Numeric/FACES): 5 - Related Data Allergies Allergy/AdvReac Type Severity Reaction Status Date / Time No Known Allergies Allergy Verified 04/22/19 06:55 Home Meds: Home Meds Indomethacin 50 mg PO TID PRN 12/17/17 [History] Albuterol Sulfate 0.63 mg IH ASDIRECTED PRN 09/15/18 [History] allopurinoL [Zyloprim] 300 mg PO DAILY 09/15/18 [History] Hydrocodone/Acetaminophen [Hydrocodon-Acetaminophen 5-325] 1 each PO ASDIRECTED 09/28/18 [History] Budesonide/Formoterol [Symbicort 160-4.5 MCG] 1 puff INH BID 04/22/19 [History] Past Medical History - Past Health History Medical/Surgical History: Denies Medical/Surgical History HEENT History: Reports: None Cardiovascular History: Reports: [place] Other Cardiovascular History: 2012: heart attack Respiratory History: Reports: Asthma Gastrointestinal History: Reports: GERD Genitourinary History: Reports: None Musculoskeletal History: Reports: Gout Neurological History: Reports: None Psychiatric History: Reports: None Endocrine/Metabolic History: Reports: None Insulin Pump Model and Applications Architect: None Hematologic History: Reports: None Immunologic History: Reports: None Oncologic (Cancer) History: Reports: None Dermatologic History: Reports: None - Infectious Disease History Infectious Disease History: Reports: None - Past Surgical History Head Surgeries/Procedures: Reports: None HEENT Surgical History: Reports: Tonsillectomy Cardiovascular Surgical History: Reports: None Respiratory Surgical History: Reports: None GI Surgical History: Reports: None Male Surgical History: Reports: None Endocrine Surgical History: Reports: None Neurological Surgical History: Reports: None Musculoskeletal Surgical History: Reports: None Dermatological Surgical History: Reports: None Social & Family History - Family History Family Medical History: Noncontributory Oncologic: Reports: Colon, Other (See Below) Other Oncologic Family History: testicle - Tobacco Use Smoking Status *Q: Former Smoker Used Tobacco, but Quit: No - Caffeine Use Caffeine Use: Reports: Tea - Recreational Drug Use Recreational Drug Use: No ED ROS GENERAL - Review of Systems Review Of Systems: See Below Free Text/Narrative/Comment: View of systems is negative for fever, chest pain, shortness of breath, cough, melena, hematochezia, diarrhea, loss of bladder or bowel control, dysuria, hematuria. Review of systems is positive for nausea in the mornings and decreased appetite. ED EXAM, GI/ABD - Physical Exam Exam: See Below Text/Narrative:: General: alert, well appearing, no acute distress HEENT: Atraumatic, normocephalic, pupils reactive, negative for conjunctival pallor or scleral icterus, mucous membranes moist, throat clear, handling oral secretions well. Neck: supple, nontender, trachea midline. Lungs: Clear to auscultation, breath sounds equal bilaterally, chest nontender. Heart: S1S2, regular, negative for clicks, rubs, or JVD. Abdomen: Soft, nondistended. No expanding or pulsatile masses. Distinct area of point tenderness in the left lower quadrant. No masses or point tenderness in the left inguinal region.. Negative for abdominal masses or hepatosplenomegaly. Negative for costovertebral tenderness. Pelvis: Stable, nontender. Skin: warm, dry, good turgor. Musculoskeletal: soft compartments. Extremities: Atraumatic, negative for cords or calf pain. Neurovascular unremarkable. Neuro: Awake, alert, oriented. Cranial nerves II through XII unremarkable. Cerebellum unremarkable. Motor and sensory unremarkable throughout. Exam nonfocal. Course - Vital Signs Last Recorded V/S: Last Vital Signs Temp 96.8 F L 04/22/19 06:55 Pulse 49 L 04/22/19 09:00 Resp 16 04/22/19 09:00 BP 108/72 04/22/19 09:00 Pulse Ox 94 L 04/22/19 09:00 - Orders/Labs/Meds Orders: Active Orders 24 hr Category Date Time Status Sodium Chloride 0.9% [Saline Flush] Med 04/22/19 07:31 Active 10 ml FLUSH ASDIRECTED PRN Sodium Chloride 0.9% [Saline Flush] Med 04/22/19 07:31 Active 2.5 ml FLUSH ASDIRECTED PRN Saline Lock Insert [OM.PC] Stat Oth 04/22/19 07:31 Ordered Medication Orders Sodium Chloride (Saline Flush) 10 ml FLUSH ASDIRECTED PRN PRN Reason: Keep Vein Open Sodium Chloride (Saline Flush) 2.5 ml FLUSH ASDIRECTED PRN PRN Reason: Keep Vein Open Labs: Laboratory Tests 04/22/19 04/22/19 04/22/19 Range/Units 06:55 07:40 07:40 WBC 6.86 (4.0-11.0) K/uL RBC 4.86 (4.50-5.90) M/uL Hgb 14.9 (13.0-17.0) g/dL Hct 43.8 (38.0-50.0) % MCV 90.1 (80.0-98.0) fL MCH 30.7 (27.0-32.0) pg MCHC 34.0 (31.0-37.0) g/dL RDW Std Deviation 44.4 (28.0-62.0) fl RDW Coeff of Howard 14 (11.0-15.0) % Plt Count 201 (150-400) K/uL MPV 10.60 (7.40-12.00) fL Neut % (Auto) 73.4 (48.0-80.0) % Lymph % (Auto) 18.7 (16.0-40.0) % Emmet % (Auto) 6.6 (0.0-15.0) % Eos % (Auto) 1.0 (0.0-7.0) % Baso % (Auto) 0.3 (0.0-1.5) % Neut # (Auto) 5.0 (1.4-5.7) K/uL Lymph # (Auto) 1.3 (0.6-2.4) K/uL Emmet # (Auto) 0.5 (0.0-0.8) K/uL Eos # (Auto) 0.1 (0.0-0.7) K/uL Baso # (Auto) 0.0 (0.0-0.1) K/uL Nucleated RBC % 0.0 /100WBC Nucleated RBCs # 0 K/uL Sodium 141 (136-148) mmol/L Potassium 4.1 (3.5-5.1) mmol/L Chloride 105 (98-107) mmol/L Carbon Dioxide 24.4 (21.0-32.0) mmol/L BUN 15 (7.0-18.0) mg/dL Creatinine 1.1 (0.8-1.3) mg/dL Est Cr Clr Drug Dosing 88.48 mL/min Estimated GFR (MDRD) > 60.0 ml/min Glucose 114 H (74-106) mg/dL Calcium 8.9 (8.5-10.1) mg/dL Total Bilirubin 0.3 (0.2-1.0) mg/dL AST 28 (15-37) IU/L ALT 51 (14-63) IU/L Alkaline Phosphatase 64 (46-116) U/L Total Protein 6.9 (6.4-8.2) g/dL Albumin 3.7 (3.4-5.0) g/dL Globulin 3.2 (2.6-4.0) g/dL Albumin/Globulin Ratio 1.2 (0.9-1.6) Lipase 121 (73-393) U/L Urine Color YELLOW Urine Appearance CLEAR Urine pH 6.0 (5.0-8.0) Ur Specific [place] >= 1.030 (1.001-1.035) Urine Protein NEGATIVE (NEGATIVE) mg/dL Urine Glucose (UA) NEGATIVE (NEGATIVE) mg/dL Urine Ketones NEGATIVE (NEGATIVE) mg/dL Urine Occult Blood NEGATIVE (NEGATIVE) Urine Nitrite NEGATIVE (NEGATIVE) Urine Bilirubin NEGATIVE (NEGATIVE) Urine Urobilinogen 0.2 (<2.0) EU/dL Ur Leukocyte Esterase NEGATIVE (NEGATIVE) Urine RBC 0-1 (0-2/HPF) Urine WBC 0-1 (0-5/HPF) Ur Epithelial Cells RARE (NONE-FEW) Urine Bacteria RARE (NEGATIVE) Cbc: nl Cmp: no clinically significant abnormalities Lipase:nl UA: neg Meds: Medications Generic Name Dose Route Start Last Admin Trade Name Freq PRN Reason Stop Dose Admin Sodium Chloride 10 ml 04/22/19 07:31 Saline Flush FLUSH ASDIRECTED PRN Keep Vein Open Sodium Chloride 2.5 ml 04/22/19 07:31 Saline Flush FLUSH ASDIRECTED PRN Keep Vein Open - Radiology Interpretation Free Text/Narrative:: CT abd/pelvis: report indicates no hernia; +diverticulosis but no diverticulitis - Re-Assessments/Exams Free Text/Narrative Re-Assessment/Exam: 04/22/19 10:[address], labs reassuring. 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 I suspect the patient is experiencing muscle spasm. He is stable and appropriate for discharge. Will refer to the internal medicine clinic. Diagnostic impressions are abdominal pain and muscle strain. Was advised to take ibuprofen or Tylenol according to supervisor gas meter repair instructions as needed. Follow-up in the internal medicine clinic within 5 days. Return here for new, changing, worsening symptoms. Departure - Departure Time of Disposition: 10:15 Disposition: Home, Self-Care 01 Condition: Good Clinical Impression: Muscle strain Abdominal pain Qualifiers: Abdominal location: unspecified location Qualified Code(s): R10.9 - Unspecified abdominal pain - Discharge Information Instructions: Abdominal Pain, Adult, [id number] Referrals: Shashank Dhillon MD [Primary Care Provider] - Forms: ED Department Discharge Additional Instructions: Muscle Strain A muscle strain is a twist, pull, or tear of a muscle or tendon. A tendon is a strong elastic tissue that connects a muscle to a bone. Signs of a strained muscle include bruising and swelling over the area, pain with movement, and loss of strength. Seek care immediately or call 911 if: You suddenly cannot feel or move your injured muscle. Contact your healthcare provider if: Your pain and swelling worsen or do not go away. You have questions or concerns about your condition or care. Medicines: NSAIDs , such as ibuprofen, help decrease swelling, pain, and fever. This medicine is available with or without a doctor's order. NSAIDs can cause stomach bleeding or kidney problems in certain people. If you take blood thinner medicine, always ask your healthcare provider if NSAIDs are safe for you. Always read the medicine label and follow directions. Muscle relaxers help decrease pain and muscle spasms. We believe that the pain you are feeling in your abdomen and the upper part of her groin is muscle strain, and it is related to loading and unloading her truck. Please take 2 or 3 200 mg [id number] ibuprofen tablets with food every 8 hours as needed, for up to 5 days. The following information is given to patients seen in the emergency department who are being discharged to home. This information is to outline your options for follow-up care. We provide all patients seen in our emergency department with a follow-up referral. The need for follow-up, as well as the timing and circumstances, are variable depending upon the specifics of your emergency department visit. If you don't have a primary care physician on staff, we will provide you with a referral. We always advise you to contact your personal physician following an emergency department visit to inform them of the circumstance of the visit and for follow-up with them and/or the need for any referrals to a consulting specialist. The emergency department will also refer you to a specialist when appropriate. This referral assures that you have the opportunity for follow-up care with a specialist. All of these measure are taken in an effort to provide you with optimal care, which includes your follow-up. Under all circumstances we always encourage you to contact your private physician who remains a resource for coordinating your care. When calling for follow-up care, please make the office aware that this follow-up is from your recent emergency room visit. If for any reason you are refused follow-up, please contact the [facility] Emergency Department at and ask to speak to the emergency department charge nurse. See your primary care provider within five days for re-exam. If you don't have one, follow up in medicine clinic in five days: Internal Medicine [facility] [place] [id number] Sepsis Event Note - Evaluation Sepsis Screening Result: No Definite Risk - Focused Exam Vital Signs: Vital Signs Temp Pulse Resp BP Pulse Ox 04/22/19 09:00 49 L 16 108/72 94 L 04/22/19 06:55 96.8 F L 55 L 18 107/73 98 Date Exam was Performed: 04/22/19 Time Exam was Performed: 10:23 - My Orders Last 24 Hours: My Active Orders 04/22/19 07:31 Sodium Chloride 0.9% [Saline Flush] 10 ml FLUSH ASDIRECTED PRN Sodium Chloride 0.9% [Saline Flush] 2.5 ml FLUSH ASDIRECTED PRN Saline Lock Insert [OM.PC] Stat - Assessment/Plan Last 24 Hours: My Active Orders 04/22/19 07:31 Sodium Chloride 0.9% [Saline Flush] 10 ml FLUSH ASDIRECTED PRN Sodium Chloride 0.9% [Saline Flush] 2.5 ml FLUSH ASDIRECTED PRN Saline Lock Insert [OM.PC] Stat
[2019-04-22] MEDS ORDERED: Sodium Chloride 0.9% 2.5 ML Syringe FLUSH PRN (07:31)
[2019-04-22] MEDS ORDERED: Sodium Chloride 0.9% 10 ML Syringe FLUSH PRN (07:31)
[2019-04-22 08:20] LABS: BLOOD UREA NITROGEN,BUN 15 mg/dL (7.0-18.0); CARBON DIOXIDE,CO2 24.4 mmol/L (21.0-32.0); CHLORIDE,CL 105 mmol/L (98-107); GLUCOSE RANDOM 114 mg/dL (74-106); LIPASE 121 U/L (73-393); POTASSIUM,K 4.1 mmol/L (3.5-5.1); SODIUM,NA 141 mmol/L (136-148)
[2019-04-22 09:01] VITALS: BP 108/72; PULSE 49
--- NOTE | 2019-04-22 10:02 | CT ---
CT abdomen and pelvis Technique: Multiple axial sections were obtained from above the dome of the diaphragm inferiorly through the pubic symphysis. Intravenous and oral contrast not utilized. Lack of contrast diminishes details. Note: 575 images were obtained at time 9:53 VICE PRESIDENT RESEARCH. Comparison: Prior CT abdomen and pelvis exam of 11/24/16. Findings: Visualized lung bases show nothing acute. Small hiatal hernia is noted. Noncontrast appearance of the liver appears within normal limits. Spleen appears within normal limits. Adrenal glands show no nodule. Pancreas is within normal limits. Gallbladder contains no calcified gallstones. Kidneys show no abnormal calcifications. No ureteral dilatation is seen. No ureteral stone is seen. Aorta shows no aneurysm. No retroperitoneal adenopathy is seen. No mesenteric abnormalities are seen. Minimal diverticulosis is noted within the sigmoid colon without inflammatory change of diverticulitis. Appendix is seen and is normal in size. No abdominal wall hernia is identified. Bone window settings were reviewed. No acute osseous finding is appreciated. Impression: 1. Minimal sigmoid diverticulosis without findings of diverticulitis. Small hiatal hernia. 2. Nothing acute is appreciated on noncontrast CT study of the abdomen and pelvis. Diagnostic code #2 This report was dictated in [place] Standard Time
== END 2019-04-22 11:02 | disposition home or self-care (01) ==
LOC: MW.ED 06:42
DX: S39.011A Strain of muscle, fascia and tendon of abdomen, initial encounter (principal); I25.2 Old myocardial infarction; M10.9 Gout, unspecified; Z79.899 Other long term (current) drug therapy; Z87.891 Personal history of nicotine dependence; X50.0XXA Overexertion from strenuous movement or load, initial encounter; Y99.0 Civilian activity done for income or pay
CPT/HCPCS: 36415; 74176; 74176-26; 80053; 81001; 83690; 85025; 99283; 99284-25

== ENCOUNTER 2019-06-25 19:58 | Inpatient (IN) | payer OTHER ==
[2019-06-25] MEDS ORDERED: LORazepam 2 MG/ML SDV IVPUSH ONE ×2 (20:13→20:57)
[2019-06-25] MEDS ORDERED: LORazepam 2 MG/ML SDV ONE (20:14)
--- NOTE | 2019-06-25 20:36 | EDM.PDOC ---
ED HPI GENERAL MEDICAL PROBLEM - General Chief Complaint: Drug or Alcohol Abuse Stated Complaint: HEART PROBLEM Time Seen by Provider: 06/25/19 20:32 Source of Information: Reports: Patient History Limitations: Reports: No Limitations - History of Present Illness INITIAL COMMENTS - FREE TEXT/NARRATIVE: Patient is a 44-year-old male with past medical history of alcohol abuse and methamphetamine abuse presenting with a chief complaint of tweaking, chest pain , anxiety. Patient states that this happened earlier this afternoon. Patient states that he used methamphetamines 2 days ago and states that was the first abnormalities used meth. Because with meth use, the patient last alcoholic beverage was on . Patient states that he normally drinks every day and normally drinks 1/5 of hard alcohol. Patient denies any prior history of alcohol withdrawals and denies any other drug use. Patient states he has associated shortness of breath, nausea, anxiety. Patient denies any traumatic injuries. Patient denies any recent travels or fevers. Pmhx: None Pshx: None Family Hx: noncontributory Smoking history? Yes Etoh use? Daily EtOH Drug use? Amphetamines In addition to that documented in the HPI above, the additional ROS was obtained : Constitutional: Denies fevers or chills Eyes: Denies vision changes ENMT: Denies sore throat CV: Per HPI Resp: Denies SOB GI: Denies vomiting or diarrhea : Denies painful urination MSK: Denies recent trauma Skin: Denies new rashes Neuro: Denies new numbness or tingling or weakness Endocrine: Denies unexpected weight loss Heme: Denies bleeding disorders I have reviewed the triage vital signs Const: Anxious appearing man sitting in bed with obvious restlessness Eyes: PERRL, no conjunctival injection HENT: NCAT, Neck supple without meningismus CV: RRR, Warm, well-perfused extremities RESP: CTAB, Unlabored respiratory effort GI: soft, non-tender, non-distended, no masses MSK: No gross deformities appreciated Skin: Warm, dry. No rashes Neuro: Demonstrates some tremors of lower extremities bilaterally. Alert, but unable to do serial additions correctly. apartment maintenance supervisor II-XII grossly intact. Sensation and motor function of extremities grossly intact. Psych: Appropriate mood and affect Assessment and plan: Patient 44 male with a history of alcohol abuse presenting with chief complaint of anxiety, restlessness. Patient's vital signs on arrival demonstrated tachycardia and hypertension. Patient's initial CIWA score was 14. Patient given a total of 4 mg of Ativan in the emergency department for symptoms. No evidence of delirium tremens at this time. Patient does have noted acute kidney injury as well for which patient was given IV normal saline. Patient will require admission to the hospital for treatment of alcohol withdrawal and further monitoring. Also consider as part of differential was acute coronary syndrome which seems less likely given no significant EKG changes or elevated troponin. generalized Pain Score (Numeric/FACES): 10 - Related Data Allergies Allergy/AdvReac Type Severity Reaction Status Date / Time No Known Allergies Allergy Verified 06/25/19 20:12 Home Meds: Home Meds Indomethacin 50 mg PO TID PRN 12/17/17 [History] Albuterol Sulfate 0.63 mg IH ASDIRECTED PRN 09/15/18 [History] allopurinoL [Zyloprim] 300 mg PO DAILY 09/15/18 [History] Hydrocodone/Acetaminophen [Hydrocodon-Acetaminophen 5-325] 1 each PO ASDIRECTED 09/28/18 [History] Budesonide/Formoterol [Symbicort 160-4.5 MCG] 1 puff INH BID 04/22/19 [History] Past Medical History - Past Health History Medical/Surgical History: Denies Medical/Surgical History HEENT History: Reports: None Cardiovascular History: Reports: [place] Other Cardiovascular History: 2012: heart attack Respiratory History: Reports: Asthma Gastrointestinal History: Reports: GERD Genitourinary History: Reports: None Musculoskeletal History: Reports: Gout Neurological History: Reports: None Psychiatric History: Reports: None Endocrine/Metabolic History: Reports: None Insulin Pump Model and Dehydrogenation Converter Operator: None Hematologic History: Reports: None Immunologic History: Reports: None Oncologic (Cancer) History: Reports: None Dermatologic History: Reports: None - Infectious Disease History Infectious Disease History: Reports: None - Past Surgical History Head Surgeries/Procedures: Reports: None HEENT Surgical History: Reports: Tonsillectomy Cardiovascular Surgical History: Reports: None Respiratory Surgical History: Reports: None GI Surgical History: Reports: None Male Surgical History: Reports: None Endocrine Surgical History: Reports: None Neurological Surgical History: Reports: None Musculoskeletal Surgical History: Reports: None Dermatological Surgical History: Reports: None Social & Family History - Family History Family Medical History: Noncontributory Oncologic: Reports: Colon, Other (See Below) Other Oncologic Family History: testicle - Tobacco Use Smoking Status *Q: Current Every Day Smoker Years of Tobacco use: 30 Packs/Tins Daily: 2 - Caffeine Use Caffeine Use: Reports: Tea - Recreational Drug Use Recreational Drug Use: Yes Recreational Drug Type: Reports: Methamphetamine ED ROS GENERAL - Review of Systems Review Of Systems: See Below ED EXAM, GENERAL - Physical Exam Exam: See Below Course - Vital Signs Last Recorded V/S: Last Vital Signs Temp 36.2 C 06/25/19 20:07 Pulse 94 06/25/19 20:34 Resp 16 06/25/19 20:34 BP 145/90 H 06/25/19 20:34 Pulse Ox 93 L 06/25/19 20:34 - Orders/Labs/Meds Orders: Active Orders 24 hr Category Date Time Status Admission Status [Patient Status] [ADT] Stat ADT 06/25/19 21:05 Ordered Labs: Laboratory Tests 06/25/19 06/25/19 06/25/19 Range/Units 20:09 20:09 20:55 WBC 10.40 (4.0-11.0) K/uL RBC 5.29 (4.50-5.90) M/uL Hgb 16.4 (13.0-17.0) g/dL Hct 49.0 (38.0-50.0) % MCV 92.6 (80.0-98.0) fL MCH 31.0 (27.0-32.0) pg MCHC 33.5 (31.0-37.0) g/dL RDW Std Deviation 48.0 (28.0-62.0) fl RDW Coeff of Howard 14 (11.0-15.0) % Plt Count 270 (150-400) K/uL MPV 10.70 (7.40-12.00) fL Neut % (Auto) 63.3 (48.0-80.0) % Lymph % (Auto) 25.0 (16.0-40.0) % [place] % (Auto) 10.8 (0.0-15.0) % Eos % (Auto) 0.7 (0.0-7.0) % Baso % (Auto) 0.2 (0.0-1.5) % Neut # (Auto) 6.6 H (1.4-5.7) K/uL Lymph # (Auto) 2.6 H (0.6-2.4) K/uL [place] # (Auto) 1.1 H (0.0-0.8) K/uL Eos # (Auto) 0.1 (0.0-0.7) K/uL Baso # (Auto) 0.0 (0.0-0.1) K/uL Nucleated RBC % 0.0 /100WBC Nucleated RBCs # 0 K/uL Sodium 141 (136-148) mmol/L Potassium 3.5 (3.5-5.1) mmol/L Chloride 103 (98-107) mmol/L Carbon Dioxide 23.6 (21.0-32.0) mmol/L BUN 18 (7.0-18.0) mg/dL Creatinine 1.6 H (0.8-1.3) mg/dL Est Cr Clr Drug Dosing 60.83 mL/min Estimated GFR (MDRD) 47.2 ml/min Glucose 213 H (74-106) mg/dL Calcium 9.2 (8.5-10.1) mg/dL Total Bilirubin 0.8 (0.2-1.0) mg/dL AST 37 (15-37) IU/L ALT 52 (14-63) IU/L Alkaline Phosphatase 90 (46-116) U/L Troponin I < 0.050 (0.000-0.056) ng/mL Total Protein 7.6 (6.4-8.2) g/dL Albumin 4.1 (3.4-5.0) g/dL Globulin 3.5 (2.6-4.0) g/dL Albumin/Globulin Ratio 1.2 (0.9-1.6) Urine Opiates Screen NEGATIVE (NEGATIVE) Ur Oxycodone Screen NEGATIVE (NEGATIVE) Urine Methadone Screen NEGATIVE (NEGATIVE) Ur Barbiturates Screen NEGATIVE (NEGATIVE) Ur Phencyclidine Scrn NEGATIVE (NEGATIVE) Ur Amphetamine Screen POSITIVE (NEGATIVE) U Methamphetamines Scrn POSITIVE (NEGATIVE) U Benzodiazepines Scrn NEGATIVE (NEGATIVE) U Cocaine Metab Screen NEGATIVE (NEGATIVE) U Marijuana (THC) Screen NEGATIVE (NEGATIVE) Ethyl Alcohol < 3.0 mg/dL Meds: Medications Discontinued Medications Generic Name Dose Route Start Last Admin Trade Name Freq PRN Reason Stop Dose Admin Lorazepam 2 mg 06/25/19 20:13 06/25/19 20:17 Ativan IVPUSH 06/25/19 20:14 2 mg ONETIME ONE Administration Lorazepam Confirm 06/25/19 20:14 06/25/19 21:06 Ativan Administered 06/25/19 20:15 Not Given Dose 2 mg .ROUTE .STK-MED ONE Lorazepam 2 mg 06/25/19 20:57 06/25/19 21:05 Ativan IVPUSH 06/25/19 20:58 2 mg ONETIME ONE Administration Departure - Departure Time of Disposition: 21:08 Disposition: Admitted As Inpatient 66 Clinical Impression: Alcohol withdrawal syndrome - Discharge Information Referrals: Shashank Dhillon MD [Primary Care Provider] - Forms: ED Department Discharge Sepsis Event Note - Evaluation Sepsis Screening Result: No Definite Risk - Focused Exam Vital Signs: Vital Signs Temp Pulse Resp BP Pulse Ox 06/25/19 20:34 94 16 145/90 H 93 L 06/25/19 20:21 108 H 20 145/90 H 98 06/25/19 20:07 36.2 C 103 H 20 160/112 H 98 Date Exam was Performed: 06/25/19 Time Exam was Performed: 21:07 - My Orders Last 24 Hours: My Active Orders 06/25/19 21:05 Admission Status [Patient Status] [ADT] Stat - Assessment/Plan Last 24 Hours: My Active Orders 06/25/19 21:05 Admission Status [Patient Status] [ADT] Stat
[2019-06-25 20:39] LABS: BLOOD UREA NITROGEN,BUN 18 mg/dL (7.0-18.0); CARBON DIOXIDE,CO2 23.6 mmol/L (21.0-32.0); CHLORIDE,CL 103 mmol/L (98-107); GLUCOSE RANDOM 213 mg/dL (74-106); POTASSIUM,K 3.5 mmol/L (3.5-5.1); SODIUM,NA 141 mmol/L (136-148)
--- NOTE | 2019-06-25 21:02 | CR ---
Chest: Portable view of the chest was obtained. Comparison: Prior chest x-ray of 04/07/18. Heart size and mediastinum are within normal limits. Lungs are clear with no acute parenchymal change. Bony structures are grossly intact. Impression: 1. Nothing acute is appreciated on portable chest x-ray. Diagnostic code #1 This report was dictated in MDT
[2019-06-25] MEDS ORDERED: LORazepam 2 MG/ML SDV IV PRN (21:37)
[2019-06-25] MEDS ORDERED: Albuterol/Ipratropium 3.0-0.5 MG/3 ML Neb Soln NEB PRN (21:41)
--- NOTE | 2019-06-25 21:50 | PCM.HP.2 ---
H&P History of Present Illness - General Date of Service: 06/25/19 Admit Problem/Dx: Admission Diagnosis/Problem Admission Diagnosis/Problem Alcohol withdrawal syndrome - History of Present Illness Initial Comments - Free Text/Narative: Patient is a 44-year-old male with past medical history of alcohol abuse, methamphetamine abuse, possible CAD comes in with c/o chest pain, anxiety and tweaking. Per ER patients symptoms started earlier this afternoon. Patient admitted to using drugs (methamphetamines 2 days back). Patient drink I/4th of vodka daily but his last drink was on . Patient denied any prior history of alcohol withdrawals. Patient had associated shortness of breath, nausea. No h/o recent travel or fever. In the ER patient was found to have mild ZOEY and CIWA of 15, received 2 doses of 2mf Ativan, UDS was positive for Methamphetamines, Patient was in sinus tachycardia, 91-92 on RA, CXR was negative, 1st troponin was negative as well. and was admitted to hospital for further management. During my encounter patient was mildly sedated s/p 4mg of Ativan. Duration of Symptoms: Reports: Hour(s): generalized Pain Score (Numeric/FACES): 10 - Related Data Allergies/Adverse Reactions: Allergies Allergy/AdvReac Type Severity Reaction Status Date / Time No Known Allergies Allergy Verified 06/25/19 20:12 Home Medications: Home Meds Indomethacin 50 mg PO TID PRN 12/17/17 [History] Albuterol Sulfate 0.63 mg IH ASDIRECTED PRN 09/15/18 [History] allopurinoL [Zyloprim] 300 mg PO DAILY 09/15/18 [History] Hydrocodone/Acetaminophen [Hydrocodon-Acetaminophen 5-325] 1 each PO ASDIRECTED 09/28/18 [History] Budesonide/Formoterol [Symbicort 160-4.5 MCG] 1 puff INH BID 04/22/19 [History] Past Medical History - Past Health History Medical/Surgical History: Denies Medical/Surgical History HEENT History: Reports: None Cardiovascular History: Reports: [place] Other Cardiovascular History: 2012: heart attack Respiratory History: Reports: Asthma Gastrointestinal History: Reports: GERD Genitourinary History: Reports: None Musculoskeletal History: Reports: Gout Neurological History: Reports: None Psychiatric History: Reports: None Endocrine/Metabolic History: Reports: None Insulin Pump Model and Intensive Care Specialist: None Hematologic History: Reports: None Immunologic History: Reports: None Oncologic (Cancer) History: Reports: None Dermatologic History: Reports: None - Infectious Disease History Infectious Disease History: Reports: None - Past Surgical History Head Surgeries/Procedures: Reports: None HEENT Surgical History: Reports: Tonsillectomy Cardiovascular Surgical History: Reports: None Respiratory Surgical History: Reports: None GI Surgical History: Reports: None Male Surgical History: Reports: None Endocrine Surgical History: Reports: None Neurological Surgical History: Reports: None Musculoskeletal Surgical History: Reports: None Dermatological Surgical History: Reports: None Social & Family History - Family History Family Medical History: Noncontributory Oncologic: Reports: Colon, Other (See Below) Other Oncologic Family History: testicle - Tobacco Use Smoking Status *Q: Current Every Day Smoker Years of Tobacco use: 30 Packs/Tins Daily: 2 - Caffeine Use Caffeine Use: Reports: Tea - Recreational Drug Use Recreational Drug Use: Yes Recreational Drug Type: Reports: Methamphetamine H&P Review of Systems - Review of Systems: Review Of Systems: Unable To Obtain Reason Not Obtained: Altered mentation due to sedation Exam - Exam Exam: See Below - Vital Signs Vital Signs: Last Vital Signs Temp 36.2 C 06/25/19 20:07 Pulse 107 H 06/25/19 21:34 Resp 16 06/25/19 21:34 BP 118/74 06/25/19 21:34 Pulse Ox 93 L 06/25/19 21:34 Weight: 93.894 kg - Exam Quality Assessment: Supplemental Oxygen General: Mild Distress. No: Alert, Oriented, Cooperative Neck: Supple Lungs: Clear to Auscultation, Normal Respiratory Effort Cardiovascular: Regular Rhythm, Normal S1, Normal S2, Tachycardia (102) GI/Abdominal Exam: Normal Bowel Sounds, Soft, Non-Tender Extremities: Normal Inspection, Normal Range of Motion Skin: Warm, Moist Psychiatric: Withdrawal Symptoms - Patient Data Lab Results Last 24 hrs: Laboratory Results - last 24 hr 06/25/19 06/25/19 06/25/19 Range/Units 20:09 20:09 20:55 WBC 10.40 (4.0-11.0) K/uL RBC 5.29 (4.50-5.90) M/uL Hgb 16.4 (13.0-17.0) g/dL Hct 49.0 (38.0-50.0) % MCV 92.6 (80.0-98.0) fL MCH 31.0 (27.0-32.0) pg MCHC 33.5 (31.0-37.0) g/dL RDW Std Deviation 48.0 (28.0-62.0) fl RDW Coeff of Howard 14 (11.0-15.0) % Plt Count 270 (150-400) K/uL MPV 10.70 (7.40-12.00) fL Neut % (Auto) 63.3 (48.0-80.0) % Lymph % (Auto) 25.0 (16.0-40.0) % [place] % (Auto) 10.8 (0.0-15.0) % Eos % (Auto) 0.7 (0.0-7.0) % Baso % (Auto) 0.2 (0.0-1.5) % Neut # (Auto) 6.6 H (1.4-5.7) K/uL Lymph # (Auto) 2.6 H (0.6-2.4) K/uL [place] # (Auto) 1.1 H (0.0-0.8) K/uL Eos # (Auto) 0.1 (0.0-0.7) K/uL Baso # (Auto) 0.0 (0.0-0.1) K/uL Nucleated RBC % 0.0 /100WBC Nucleated RBCs # 0 K/uL Sodium 141 (136-148) mmol/L Potassium 3.5 (3.5-5.1) mmol/L Chloride 103 (98-107) mmol/L Carbon Dioxide 23.6 (21.0-32.0) mmol/L BUN 18 (7.0-18.0) mg/dL Creatinine 1.6 H (0.8-1.3) mg/dL Est Cr Clr Drug Dosing 60.83 mL/min Estimated GFR (MDRD) 47.2 ml/min Glucose 213 H (74-106) mg/dL Calcium 9.2 (8.5-10.1) mg/dL Total Bilirubin 0.8 (0.2-1.0) mg/dL AST 37 (15-37) IU/L ALT 52 (14-63) IU/L Alkaline Phosphatase 90 (46-116) U/L Troponin I < 0.050 (0.000-0.056) ng/mL Total Protein 7.6 (6.4-8.2) g/dL Albumin 4.1 (3.4-5.0) g/dL Globulin 3.5 (2.6-4.0) g/dL Albumin/Globulin Ratio 1.2 (0.9-1.6) Urine Opiates Screen NEGATIVE (NEGATIVE) Ur Oxycodone Screen NEGATIVE (NEGATIVE) Urine Methadone Screen NEGATIVE (NEGATIVE) Ur Barbiturates Screen NEGATIVE (NEGATIVE) Ur Phencyclidine Scrn NEGATIVE (NEGATIVE) Ur Amphetamine Screen POSITIVE (NEGATIVE) U Methamphetamines Scrn POSITIVE (NEGATIVE) U Benzodiazepines Scrn NEGATIVE (NEGATIVE) U Cocaine Metab Screen NEGATIVE (NEGATIVE) U Marijuana (THC) Screen NEGATIVE (NEGATIVE) Ethyl Alcohol < 3.0 mg/dL Result Diagrams: 06/25/19 20:09 06/25/19 20:09 Sepsis Event Note - Evaluation Sepsis Screening Result: No Definite Risk - Focused Exam Vital Signs: Vital Signs Temp Pulse Resp BP Pulse Ox 06/25/19 21:34 107 H 16 118/74 93 L 06/25/19 21:08 93 L 06/25/19 21:06 102 H 16 138/88 88 L 06/25/19 20:34 94 16 145/90 H 93 L 06/25/19 20:21 108 H 20 145/90 H 98 06/25/19 20:07 36.2 C 103 H 20 160/112 H 98 Date Exam was Performed: 06/25/19 Time Exam was Performed: 23:51 - Problem List (1) Drug abuse SNOMED Code(s): 59573243 ICD Code: F19.10 - OTHER PSYCHOACTIVE SUBSTANCE ABUSE, UNCOMPLICATED Status : Acute Current Visit: Yes (2) Alcohol withdrawal syndrome SNOMED Code(s): 403331099 ICD Code: F10.239 - ALCOHOL DEPENDENCE WITH WITHDRAWAL, UNSPECIFIED Status : Acute Current Visit: Yes Problem List Initiated/Reviewed/Updated: Yes Orders Last 24hrs: Active Orders 24 hr Category Date Time Status Admission Status [Patient Status] [ADT] Stat ADT 06/25/19 21:05 Active Ambulate [RC] ASDIRECTED Care 06/25/19 21:37 Ordered Antiembolic Devices [RC] PER UNIT ROUTINE Care 06/25/19 21:41 Ordered Blood Glucose Check, Bedside [RC] WITHMEALSANDBED Care 06/25/19 21:41 Ordered Oxygen Therapy [RC] PRN Care 06/25/19 21:37 Ordered Oxygen Therapy [RC] PRN Care 06/25/19 21:41 Ordered Pulse Oximetry [RC] PRN Care 06/25/19 21:38 Ordered RT Aerosol Therapy [RC] ASDIRECTED Care 06/25/19 21:43 Ordered VTE/DVT Education [RC] PER UNIT ROUTINE Care 06/25/19 21:37 Ordered VTE/DVT Education [RC] PER UNIT ROUTINE Care 06/25/19 21:41 Ordered Vital Signs [RC] Q4H Care 06/25/19 21:37 Ordered Vital Signs [RC] Q4H Care 06/25/19 21:41 Ordered Nothing per Oral Now Diet [DIET] Diet 06/25/19 Dinner Ordered BMP [BASIC METABOLIC PANEL,BMP] [CHEM] AM Lab 06/26/19 05:11 Ordered CBC WITH AUTO DIFF [HEME] AM Lab 06/26/19 05:11 Ordered MAGNESIUM [CHEM] AM Lab 06/26/19 05:11 Ordered PHOSPHORUS [CHEM] AM Lab 06/26/19 05:11 Ordered Albuterol/Ipratropium [DuoNeb 3.0-0.5 MG/3 ML] Med 06/25/19 21:41 Ordered 3 ml NEB Q4HRRT PRN LORazepam [Ativan] Med 06/25/19 21:37 Ordered See Protocol IV Q4H PRN Sodium Chloride 0.9% @ 125 MLS/HR (1000ml) Med 06/25/19 21:45 Ordered Sodium Chloride 0.9% [Normal Saline] 1,000 ml IV ASDIRECTED Sequential Compression Device [OM.PC] Per Unit Routine Oth 06/25/19 21:38 Ordered Medication Orders Albuterol/Ipratropium (Duoneb 3.0-0.5 Mg/3 Ml) 3 ml NEB Q4HRRT PRN PRN Reason: Shortness Of Breath/wheezing Sodium Chloride (Normal Saline) 1,000 mls @ 125 mls/hr IV ASDIRECTED EDISON Lorazepam (Ativan) 0 mg IV Q4H PRN; Protocol PRN Reason: Agitation Assessment/Plan Comment:: 44 y/o M admitted for alcohol withdrawal and drug abuse Received Ativan in ER 4 mg, currently sedated with mild tremors and diaphoresis , maintaining airway well Will start IV fluid hydration with NS@ 125 cc/hr start Ativan based on CIWA protocol start Folic acid and thiamine h/o CAD?, will obtain lipid profile, TSH will obtain more information when patient more awake/ or from family Trend troponin Monitor and replete electrolytes closely Will need alcohol nd drug rehab Lovenox for DVT ppx
[2019-06-25] MEDS: Sodium Chloride 0.9% 1,000 ML IV SCH (22:00)
--- NOTE | 2019-06-25 22:44 | PN ---
THC Physician - Brief Progress [id number]/19/2020 22:20[facility] [place], [place] - TOM (LOAN) - DMITRIY APARICIODate of Service 06/25/2019 22:20HPI/Events o f Note Chart reviewed. On camera, the patient is resting in bed in NAD. Mr Cross is a 44 yr old man presenting with CP and anxiety, and "tweaking". Does not have past h/o alcohol withdrawal. In the ED, his CIWA score was 14 and he rec'd Ativan 4 mg IVP total, with improvement. PMH: [place] in 2012 per fredo ent's report; GERD; alcohol and meth use; smoker.Investigations reviewed - pertinent: CBC unremarkabl e; Cre 1.6; LFTs normal; Troponin normal.UDS = positive for amphetamines and methamphetmaines.ETOH < 3.CxR: KYLIE/EA/P:1. ETOH and meth withdrawal- [facility] protocol- Thiamine and Folate- refer for counseling 2. ZOEY- unclear etiology, UA ordered- ? dehydration, recheck UA after IV hydration3.? past h/o [place]- cu rrent episode unlikely to be ACS. WIll trend Troponins.- obtain old records regarding this, if availa ble as patient is not on any CAD meds as outpatient.- strongly recommend complete smoking cessation.4 . DVT prophylaxis - Lovenox.Interventions Major-Other: ETOH withdrawal; ZOEY; past h/o CADElectronical ly Signed by: MADDIE BROOKS) on 06/25/2019 22:43
[2019-06-26] MEDS: Sodium Chloride 0.9% 1,000 ML IV SCH (06:14)
[2019-06-26 06:25] LABS: BLOOD UREA NITROGEN,BUN 20 mg/dL (7.0-18.0); CARBON DIOXIDE,CO2 24.8 mmol/L (21.0-32.0); CHLORIDE,CL 108 mmol/L (98-107); GLUCOSE RANDOM 98 mg/dL (74-106); POTASSIUM,K 4.3 mmol/L (3.5-5.1); SODIUM,NA 144 mmol/L (136-148)
--- NOTE | 2019-06-26 09:16 | PN ---
THC Physician - Brief Progress [id number]/20/2020 09:15[facility] [place], [place] - TOM ([facility]) - DMITRYI APARICIODate of Service 06/26/2019 09:15HPI/Events o f Note eICU Progress [id number] admitted for EtOH and methamphetamine withdrawal. History obtained prima rily from review of EMR.Camera exam: Laying in bed. Vitals monitor reviewed.Vitals: reviewedLabs: rev iewedRadiology: reviewedMeds: reviewedeICU Impression and Recommendations:Alcohol WithdrawalAlcohol w ithdrawal protocol per institutional policy, including administration of PRN benzodiazepinesContinued telemetry monitoringThiamine supplementation, 100mg dailyFolic acid, 400mcg dailyDVT and GI prophyla xis as appropriate.We are available to assist in further clarification, or implementation of any of t he above recommendations if desired by primary service.Thank you for allowing us to participate in th e care of this patient.The above note transcribed with the assistance of dictation software. Please e xcuse any errors.Interventions Major-Delirium, psychosis, severe agitation - evaluation and managemen t
[2019-06-26] MEDS: Folic Acid 1 MG Tab PO SCH (10:00)
[2019-06-26] MEDS: Thiamine 100 MG in Sodium Chloride 0.9% 100 ML IV SCH ×3 (10:00)
[2019-06-26] MEDS: Enoxaparin 40 MG/0.4 ML Syringe SUBCUT SCH (10:00)
[2019-06-26 10:11] LABS: HEMOGLOBIN A1C 5.3 % (4.5-6.2)
--- NOTE | 2019-06-26 11:04 | PCM.PN ---
- General Info Date of Service: 06/26/19 Admission Dx/Problem (Free Text): Admission Diagnosis/Problem Admission Diagnosis/Problem Alcohol withdrawal syndrome Subjective Update: Patient seen and examined at bedside. More awake today, no chest pain, sob. Functional Status: Reports: Pain Controlled - Review of Systems General: Reports: Weakness, Fatigue. Denies: Fever HEENT: Denies: Dysphasia, Ear Pain Pulmonary: Denies: Shortness of Breath, Pleuritic Chest Pain Cardiovascular: Denies: Chest Pain, Palpitations, Dyspnea on Exertion Gastrointestinal: Denies: Abdominal Pain, Constipation Genitourinary: Denies: Dysuria, Frequency Musculoskeletal: Denies: Neck Pain, Shoulder Pain Neurological: Reports: Tremors. Denies: Confusion, Dizziness Psychiatric: Denies: Confusion, Depression, Mood Lability, Suicidal Ideation, Homicidal Ideation - Patient Data Vitals - Most Recent: Last Vital Signs Temp 36.8 C 06/26/19 08:00 Pulse 108 H 06/25/19 22:00 Resp 14 06/26/19 09:00 BP 137/75 06/26/19 09:00 Pulse Ox 96 06/26/19 09:00 Weight - Most Recent: 97.976 kg I&O - Last 24 Hours: Intake & Output 06/25/19 06/26/19 06/26/19 22:59 06:59 14:59 Intake Total 784 Output Total 0 Balance 784 Lab Results Last 24 Hours: Laboratory Results - last 24 hr 06/25/19 06/25/19 06/25/19 Range/Units 20:09 20:09 20:55 WBC 10.40 (4.0-11.0) K/uL RBC 5.29 (4.50-5.90) M/uL Hgb 16.4 (13.0-17.0) g/dL Hct 49.0 (38.0-50.0) % MCV 92.6 (80.0-98.0) fL MCH 31.0 (27.0-32.0) pg MCHC 33.5 (31.0-37.0) g/dL RDW Std Deviation 48.0 (28.0-62.0) fl RDW Coeff of [place] 14 (11.0-15.0) % Plt Count 270 (150-400) K/uL MPV 10.70 (7.40-12.00) fL Neut % (Auto) 63.3 (48.0-80.0) % Lymph % (Auto) 25.0 (16.0-40.0) % [place] % (Auto) 10.8 (0.0-15.0) % Eos % (Auto) 0.7 (0.0-7.0) % Baso % (Auto) 0.2 (0.0-1.5) % Neut # (Auto) 6.6 H (1.4-5.7) K/uL Lymph # (Auto) 2.6 H (0.6-2.4) K/uL [place] # (Auto) 1.1 H (0.0-0.8) K/uL Eos # (Auto) 0.1 (0.0-0.7) K/uL Baso # (Auto) 0.0 (0.0-0.1) K/uL Nucleated RBC % 0.0 /100WBC Nucleated RBCs # 0 K/uL Sodium 141 (136-148) mmol/L Potassium 3.5 (3.5-5.1) mmol/L Chloride 103 (98-107) mmol/L Carbon Dioxide 23.6 (21.0-32.0) mmol/L BUN 18 (7.0-18.0) mg/dL Creatinine 1.6 H (0.8-1.3) mg/dL Est Cr Clr Drug Dosing 60.83 mL/min Estimated GFR (MDRD) 47.2 ml/min Glucose 213 H (74-106) mg/dL POC Glucose (60-110) mg/dL Hemoglobin A1c (4.5-6.2) % Calcium 9.2 (8.5-10.1) mg/dL Phosphorus (2.6-4.7) mg/dL Magnesium (1.8-2.4) mg/dL Total Bilirubin 0.8 (0.2-1.0) mg/dL AST 37 (15-37) IU/L ALT 52 (14-63) IU/L Alkaline Phosphatase 90 (46-116) U/L Troponin I < 0.050 (0.000-0.056) ng/mL Total Protein 7.6 (6.4-8.2) g/dL Albumin 4.1 (3.4-5.0) g/dL Globulin 3.5 (2.6-4.0) g/dL Albumin/Globulin Ratio 1.2 (0.9-1.6) Triglycerides (0-200) mg/dL Cholesterol (50-200) mg/dL LDL Cholesterol, Calc (60-180) mg/dL VLDL Cholesterol (5-55) mg/dL HDL Cholesterol (40-60) mg/dL Cholesterol/HDL Ratio (3.3-6.0) TSH 3rd Generation (0.36-3.74) uIU/mL Urine Color Urine Appearance Urine pH (5.0-8.0) Ur Specific [place] (1.001-1.035) Urine Protein (NEGATIVE) mg/dL Urine Glucose (UA) (NEGATIVE) mg/dL Urine Ketones (NEGATIVE) mg/dL Urine Occult Blood (NEGATIVE) Urine Nitrite (NEGATIVE) Urine Bilirubin (NEGATIVE) Urine Ictotest Urine Urobilinogen (<2.0) EU/dL Ur Leukocyte Esterase (NEGATIVE) U Hyaline Cast (Auto) (0-2/LPF) Urine RBC (0-2/HPF) Urine WBC (0-5/HPF) Ur Epithelial Cells (NONE-FEW) Urine Bacteria (NEGATIVE) Urine Mucus (NONE-MOD) Urine Opiates Screen NEGATIVE (NEGATIVE) Ur Oxycodone Screen NEGATIVE (NEGATIVE) Urine Methadone Screen NEGATIVE (NEGATIVE) Ur Barbiturates Screen NEGATIVE (NEGATIVE) Ur Phencyclidine Scrn NEGATIVE (NEGATIVE) Ur Amphetamine Screen POSITIVE (NEGATIVE) U Methamphetamines Scrn POSITIVE (NEGATIVE) U Benzodiazepines Scrn NEGATIVE (NEGATIVE) U Cocaine Metab Screen NEGATIVE (NEGATIVE) U Marijuana (THC) Screen NEGATIVE (NEGATIVE) Ethyl Alcohol < 3.0 mg/dL 06/25/19 06/26/19 06/26/19 Range/Units 20:55 05:53 05:53 WBC 5.97 (4.0-11.0) K/uL RBC 4.73 (4.50-5.90) M/uL Hgb 14.5 (13.0-17.0) g/dL Hct 44.7 (38.0-50.0) % MCV 94.5 (80.0-98.0) fL MCH 30.7 (27.0-32.0) pg MCHC 32.4 (31.0-37.0) g/dL RDW Std Deviation 48.9 (28.0-62.0) fl RDW Coeff of [place] 14 (11.0-15.0) % Plt Count 213 (150-400) K/uL MPV 10.70 (7.40-12.00) fL Neut % (Auto) 52.9 (48.0-80.0) % Lymph % (Auto) 32.5 (16.0-40.0) % [place] % (Auto) 12.6 (0.0-15.0) % Eos % (Auto) 1.7 (0.0-7.0) % Baso % (Auto) 0.3 (0.0-1.5) % Neut # (Auto) 3.2 (1.4-5.7) K/uL Lymph # (Auto) 1.9 (0.6-2.4) K/uL [place] # (Auto) 0.8 (0.0-0.8) K/uL Eos # (Auto) 0.1 (0.0-0.7) K/uL Baso # (Auto) 0.0 (0.0-0.1) K/uL Nucleated RBC % 0.0 /100WBC Nucleated RBCs # 0 K/uL Sodium 144 (136-148) mmol/L Potassium 4.3 (3.5-5.1) mmol/L Chloride 108 H (98-107) mmol/L Carbon Dioxide 24.8 (21.0-32.0) mmol/L BUN 20 H (7.0-18.0) mg/dL Creatinine 1.1 (0.8-1.3) mg/dL Est Cr Clr Drug Dosing 88.48 mL/min Estimated GFR (MDRD) > 60.0 ml/min Glucose 98 (74-106) mg/dL POC Glucose (60-110) mg/dL Hemoglobin A1c (4.5-6.2) % Calcium 8.4 L (8.5-10.1) mg/dL Phosphorus 5.2 H (2.6-4.7) mg/dL Magnesium 2.1 (1.8-2.4) mg/dL Total Bilirubin (0.2-1.0) mg/dL AST (15-37) IU/L ALT (14-63) IU/L Alkaline Phosphatase (46-116) U/L Troponin I (0.000-0.056) ng/mL Total Protein (6.4-8.2) g/dL Albumin (3.4-5.0) g/dL Globulin (2.6-4.0) g/dL Albumin/Globulin Ratio (0.9-1.6) Triglycerides 73 (0-200) mg/dL Cholesterol 260 H (50-200) mg/dL LDL Cholesterol, Calc 192 H (60-180) mg/dL VLDL Cholesterol 14 (5-55) mg/dL HDL Cholesterol 53 (40-60) mg/dL Cholesterol/HDL Ratio 4.9 (3.3-6.0) TSH 3rd Generation 0.98 (0.36-3.74) uIU/mL Urine Color YELLOW Urine Appearance SLT CLOUDY Urine pH 6.0 (5.0-8.0) Ur Specific [place] >= 1.030 (1.001-1.035) Urine Protein NEGATIVE (NEGATIVE) mg/dL Urine Glucose (UA) NEGATIVE (NEGATIVE) mg/dL Urine Ketones 15 H (NEGATIVE) mg/dL Urine Occult Blood NEGATIVE (NEGATIVE) Urine Nitrite NEGATIVE (NEGATIVE) Urine Bilirubin SMALL H (NEGATIVE) Urine Ictotest NEGATIVE Urine Urobilinogen 1.0 (<2.0) EU/dL Ur Leukocyte Esterase NEGATIVE (NEGATIVE) U Hyaline Cast (Auto) 2-4 (0-2/LPF) Urine RBC 0-1 (0-2/HPF) Urine WBC 0-2 (0-5/HPF) Ur Epithelial Cells RARE (NONE-FEW) Urine Bacteria FEW (NEGATIVE) Urine Mucus LIGHT (NONE-MOD) Urine Opiates Screen (NEGATIVE) Ur Oxycodone Screen (NEGATIVE) Urine Methadone Screen (NEGATIVE) Ur Barbiturates Screen (NEGATIVE) Ur Phencyclidine Scrn (NEGATIVE) Ur Amphetamine Screen (NEGATIVE) U Methamphetamines Scrn (NEGATIVE) U Benzodiazepines Scrn (NEGATIVE) U Cocaine Metab Screen (NEGATIVE) U Marijuana (THC) Screen (NEGATIVE) Ethyl Alcohol mg/dL 06/26/19 06/26/19 Range/Units 05:53 06:06 WBC (4.0-11.0) K/uL RBC (4.50-5.90) M/uL Hgb (13.0-17.0) g/dL Hct (38.0-50.0) % MCV (80.0-98.0) fL MCH (27.0-32.0) pg MCHC (31.0-37.0) g/dL RDW Std Deviation (28.0-62.0) fl RDW Coeff of [place] (11.0-15.0) % Plt Count (150-400) K/uL MPV (7.40-12.00) fL Neut % (Auto) (48.0-80.0) % Lymph % (Auto) (16.0-40.0) % [place] % (Auto) (0.0-15.0) % Eos % (Auto) (0.0-7.0) % Baso % (Auto) (0.0-1.5) % Neut # (Auto) (1.4-5.7) K/uL Lymph # (Auto) (0.6-2.4) K/uL [place] # (Auto) (0.0-0.8) K/uL Eos # (Auto) (0.0-0.7) K/uL Baso # (Auto) (0.0-0.1) K/uL Nucleated RBC % /100WBC Nucleated RBCs # K/uL Sodium (136-148) mmol/L Potassium (3.5-5.1) mmol/L Chloride (98-107) mmol/L Carbon Dioxide (21.0-32.0) mmol/L BUN (7.0-18.0) mg/dL Creatinine (0.8-1.3) mg/dL Est Cr Clr Drug Dosing mL/min Estimated GFR (MDRD) ml/min Glucose (74-106) mg/dL POC Glucose 79 (60-110) mg/dL Hemoglobin A1c 5.3 (4.5-6.2) % Calcium (8.5-10.1) mg/dL Phosphorus (2.6-4.7) mg/dL Magnesium (1.8-2.4) mg/dL Total Bilirubin (0.2-1.0) mg/dL AST (15-37) IU/L ALT (14-63) IU/L Alkaline Phosphatase (46-116) U/L Troponin I (0.000-0.056) ng/mL Total Protein (6.4-8.2) g/dL Albumin (3.4-5.0) g/dL Globulin (2.6-4.0) g/dL Albumin/Globulin Ratio (0.9-1.6) Triglycerides (0-200) mg/dL Cholesterol (50-200) mg/dL LDL Cholesterol, Calc (60-180) mg/dL VLDL Cholesterol (5-55) mg/dL HDL Cholesterol (40-60) mg/dL Cholesterol/HDL Ratio (3.3-6.0) TSH 3rd Generation (0.36-3.74) uIU/mL Urine Color Urine Appearance Urine pH (5.0-8.0) Ur Specific [place] (1.001-1.035) Urine Protein (NEGATIVE) mg/dL Urine Glucose (UA) (NEGATIVE) mg/dL Urine Ketones (NEGATIVE) mg/dL Urine Occult Blood (NEGATIVE) Urine Nitrite (NEGATIVE) Urine Bilirubin (NEGATIVE) Urine Ictotest Urine Urobilinogen (<2.0) EU/dL Ur Leukocyte Esterase (NEGATIVE) U Hyaline Cast (Auto) (0-2/LPF) Urine RBC (0-2/HPF) Urine WBC (0-5/HPF) Ur Epithelial Cells (NONE-FEW) Urine Bacteria (NEGATIVE) Urine Mucus (NONE-MOD) Urine Opiates Screen (NEGATIVE) Ur Oxycodone Screen (NEGATIVE) Urine Methadone Screen (NEGATIVE) Ur Barbiturates Screen (NEGATIVE) Ur Phencyclidine Scrn (NEGATIVE) Ur Amphetamine Screen (NEGATIVE) U Methamphetamines Scrn (NEGATIVE) U Benzodiazepines Scrn (NEGATIVE) U Cocaine Metab Screen (NEGATIVE) U Marijuana (THC) Screen (NEGATIVE) Ethyl Alcohol mg/dL Med Orders - Current: Current Medications Albuterol/Ipratropium (Duoneb 3.0-0.5 Mg/3 Ml) 3 ml NEB Q4HRRT PRN PRN Reason: Shortness Of Breath/wheezing Enoxaparin Sodium (Lovenox) 40 mg SUBCUT DAILY [facility] Last Admin: 06/26/19 10:00 Dose: 40 mg Folic Acid (Folic Acid) 1 mg PO DAILY [facility] Last Admin: 06/26/19 10:00 Dose: 1 mg Thiamine HCl 100 mg/ Sodium (Chloride) 101 mls @ 202 mls/hr IV DAILY [facility] Last Admin: 06/26/19 10:00 Dose: 202 mls/hr Lorazepam (Ativan) 0 mg IV Q4H PRN; Protocol PRN Reason: Agitation Last Admin: 06/26/19 03:22 Dose: 2 mg Discontinued Medications Sodium Chloride (Normal Saline) 1,000 mls @ 125 mls/hr IV ASDIRECTED [facility] Last Admin: 06/26/19 06:14 Dose: 125 mls/hr Lorazepam (Ativan) 2 mg IVPUSH ONETIME ONE Stop: 06/25/19 20:14 Last Admin: 06/25/19 20:17 Dose: 2 mg Lorazepam (Ativan) Confirm Administered Dose 2 mg .ROUTE .STK-MED ONE Stop: 06/25/19 20:15 Last Admin: 06/25/19 21:06 Dose: Not Given Lorazepam (Ativan) 2 mg IVPUSH ONETIME ONE Stop: 06/25/19 20:58 Last Admin: 06/25/19 21:05 Dose: 2 mg - Exam Quality Assessment: Supplemental Oxygen General: Alert, Oriented Neck: Supple, Trachea Midline Lungs: Clear to Auscultation, Normal Respiratory Effort Cardiovascular: Regular Rate, Regular Rhythm GI/Abdominal Exam: Normal Bowel Sounds, Soft, Non-Tender Extremities: Normal Inspection, Normal Range of Motion Neurological: No New Focal Deficit, Normal Speech, Normal Tone Sepsis Event Note - Evaluation Sepsis Screening Result: No Definite Risk - Focused Exam Vital Signs: Vital Signs Temp Resp BP Pulse Ox 06/26/19 09:00 14 137/75 96 06/26/19 08:00 36.8 C 16 126/68 96 06/26/19 07:00 15 143/93 H 96 06/26/19 06:00 17 124/78 96 06/26/19 05:00 16 105/73 97 06/26/19 04:00 36.1 C 18 111/66 97 06/26/19 03:00 18 106/74 96 06/26/19 02:00 15 102/77 97 06/26/19 01:00 18 121/67 96 06/26/19 00:00 17 121/67 95 Date Exam was Performed: 06/26/19 Time Exam was Performed: 12:59 - Problem List & Annotations (1) Drug abuse SNOMED Code(s): 57578575 Code(s): F19.10 - OTHER PSYCHOACTIVE SUBSTANCE ABUSE, UNCOMPLICATED Status : Acute Current Visit: Yes (2) Alcohol withdrawal syndrome SNOMED Code(s): 354672502 Code(s): F10.239 - ALCOHOL DEPENDENCE WITH WITHDRAWAL, UNSPECIFIED Status: Acute Current Visit: Yes - Problem List Review Problem List Initiated/Reviewed/Updated: Yes - My Orders Last 24 Hours: My Active Orders 06/25/19 21:37 Ambulate [RC] ASDIRECTED Oxygen Therapy [RC] PRN VTE/DVT Education [RC] PER UNIT ROUTINE Vital Signs [RC] Q4H LORazepam [Ativan] See Protocol IV Q4H PRN 06/25/19 21:38 Sequential Compression Device [OM.PC] Per Unit Routine 06/25/19 21:41 Antiembolic Devices [RC] PER UNIT ROUTINE Blood Glucose Check, Bedside [RC] WITHMEALSANDBED Oxygen Therapy [RC] PRN VTE/DVT Education [RC] PER UNIT ROUTINE Vital Signs [RC] Q1H Albuterol/Ipratropium [DuoNeb 3.0-0.5 MG/3 ML] 3 ml NEB Q4HRRT PRN 06/25/19 21:43 RT Aerosol Therapy [RC] ASDIRECTED - Plan Plan:: 44 y/o M admitted for alcohol withdrawal and drug abuse CIWA much better today, 5-6 ZOEY resolved, stop fluids Start regular diet start Ativan based on CIWA protocol start Folic acid and thiamine Lipid profile noted, will start on Statin Monitor and replete electrolytes closely Will need alcohol nd drug rehab Lovenox for DVT ppx
[2019-06-26] MEDS ORDERED: Budesonide/Formoterol 160-4.5 MCG/Puff 6 GM Inhaler INH SCH (12:15)
[2019-06-26] MEDS: Allopurinol 300 MG Tab PO SCH (13:04)
[2019-06-26] MEDS ORDERED: atorvaSTATin 40 MG Tab PO SCH (21:00)
[2019-06-26] MEDS: Budesonide/Formoterol 160-4.5 MCG/Puff 6 GM Inhaler INH SCH (21:16)
[2019-06-27 05:55] LABS: BLOOD UREA NITROGEN,BUN 18 mg/dL (7.0-18.0); CARBON DIOXIDE,CO2 25.7 mmol/L (21.0-32.0); CHLORIDE,CL 106 mmol/L (98-107); GLUCOSE RANDOM 94 mg/dL (74-106); POTASSIUM,K 3.8 mmol/L (3.5-5.1); SODIUM,NA 141 mmol/L (136-148)
[2019-06-27] MEDS: Allopurinol 300 MG Tab PO SCH (09:30)
[2019-06-27] MEDS: Folic Acid 1 MG Tab PO SCH (09:30)
[2019-06-27] MEDS: Budesonide/Formoterol 160-4.5 MCG/Puff 6 GM Inhaler INH SCH (09:31)
[2019-06-27] MEDS: Enoxaparin 40 MG/0.4 ML Syringe SUBCUT SCH (09:31)
[2019-06-27] MEDS: Thiamine 100 MG in Sodium Chloride 0.9% 100 ML IV SCH (10:08)
[2019-06-27 10:28] VITALS: BP 120/78; PULSE 78
--- NOTE | 2019-06-27 10:34 | PCM.DCSUM1 ---
Discharge Summary - Discharge Data Discharge Date: 06/27/19 Discharge Disposition: Home, Self-Care 01 Condition: Stable - Referral to Home Health Primary Care Physician: Shashank Dhillon MD - Discharge Diagnosis/Problem(s) (1) Drug abuse SNOMED Code(s): 13063878 ICD Code: F19.10 - OTHER PSYCHOACTIVE SUBSTANCE ABUSE, UNCOMPLICATED Status : Acute Current Visit: Yes (2) Alcohol withdrawal syndrome SNOMED Code(s): 095116409 ICD Code: F10.239 - ALCOHOL DEPENDENCE WITH WITHDRAWAL, UNSPECIFIED Status : Acute Current Visit: Yes - Discharge Plan Home Medications: Home Meds Indomethacin 50 mg PO TID PRN 12/17/17 [History] Albuterol Sulfate 0.63 mg IH ASDIRECTED PRN 09/15/18 [History] allopurinoL [Zyloprim] 300 mg PO DAILY 09/15/18 [History] Hydrocodone/Acetaminophen [Hydrocodon-Acetaminophen 5-325] 1 each PO ASDIRECTED PRN 09/28/18 [History] Budesonide/Formoterol [Symbicort 160-4.5 MCG] 1 puff INH BID 04/22/19 [History] Referrals: Shashank Dhillon MD [Primary Care Provider] - 07/04/19 10:30 am (Arrive 15 minutes early with a photo ID and insurance card. If you are not early, they will not see you. ) - Patient Data Vitals - Most Recent: Last Vital Signs Temp 37.4 C 06/27/19 08:00 Pulse 78 06/27/19 08:00 Resp 16 06/27/19 08:00 BP 120/78 06/27/19 08:00 Pulse Ox 96 06/27/19 08:00 Weight - Most Recent: 97.976 kg I&O - Last 24 hours: Intake & Output 06/26/19 06/27/19 06/27/19 22:59 06:59 14:59 Intake Total 900 1380 Output Total 300 Balance 600 1380 Lab Results - Last 24 hrs: Laboratory Results - last 24 hr 06/27/19 Range/Units 05:20 Sodium 141 (136-148) mmol/L Potassium 3.8 (3.5-5.1) mmol/L Chloride 106 (98-107) mmol/L Carbon Dioxide 25.7 (21.0-32.0) mmol/L BUN 18 (7.0-18.0) mg/dL Creatinine 1.1 (0.8-1.3) mg/dL Est Cr Clr Drug Dosing 88.70 mL/min Estimated GFR (MDRD) > 60.0 ml/min Glucose 94 (74-106) mg/dL Calcium 8.3 L (8.5-10.1) mg/dL Med Orders - Current: Current Medications Albuterol/Ipratropium (Duoneb 3.0-0.5 Mg/3 Ml) 3 ml NEB Q4HRRT PRN PRN Reason: Shortness Of Breath/wheezing Allopurinol (Zyloprim) 300 mg PO DAILY [facility] Last Admin: 06/27/19 09:30 Dose: 300 mg Atorvastatin Calcium (Lipitor) 40 mg PO BEDTIME [facility] Last Admin: 06/26/19 21:16 Dose: 40 mg Enoxaparin Sodium (Lovenox) 40 mg SUBCUT DAILY [facility] Last Admin: 06/27/19 09:31 Dose: 40 mg Folic Acid (Folic Acid) 1 mg PO DAILY [facility] Last Admin: 06/27/19 09:30 Dose: 1 mg Thiamine HCl 100 mg/ Sodium (Chloride) 101 mls @ 202 mls/hr IV DAILY [facility] Last Admin: 06/27/19 10:08 Dose: 202 mls/hr Lorazepam (Ativan) 0 mg IV Q4H PRN; Protocol PRN Reason: Agitation Last Admin: 06/26/19 03:22 Dose: 2 mg Budesonide/Formoterol 160-4.5 Mcg/Puff 6 Gm Inhaler 0 each INH BID [facility] Last Admin: 06/27/19 09:31 Dose: 1 each Discontinued Medications Budesonide/Formoterol Fumarate (Symbicort 160-4.5 Mcg) 0 gm INH BID [facility] Last Admin: 06/26/19 13:04 Dose: Not Given Sodium Chloride (Normal Saline) 1,000 mls @ 125 mls/hr IV ASDIRECTED [facility] Last Admin: 06/26/19 06:14 Dose: 125 mls/hr Lorazepam (Ativan) 2 mg IVPUSH ONETIME ONE Stop: 06/25/19 20:14 Last Admin: 06/25/19 20:17 Dose: 2 mg Lorazepam (Ativan) Confirm Administered Dose 2 mg .ROUTE .STK-MED ONE Stop: 06/25/19 20:15 Last Admin: 06/25/19 21:06 Dose: Not Given Lorazepam (Ativan) 2 mg IVPUSH ONETIME ONE Stop: 06/25/19 20:58 Last Admin: 06/25/19 21:05 Dose: 2 mg
== END 2019-06-27 11:49 | disposition home or self-care (01) | DRG 897 ==
LOC: MW.ED 19:58 → MW.ICU 21:05 → MW.MS 06-26 17:29
PROVIDERS: ADMIT Student in an Organized Health Care Education/Training Program; ATTEND Student in an Organized Health Care Education/Training Program
DX: F10.239 Alcohol dependence with withdrawal, unspecified (principal); N17.9 Acute kidney failure, unspecified; F15.10 Other stimulant abuse, uncomplicated; Z79.899 Other long term (current) drug therapy; K21.9 Gastro-esophageal reflux disease without esophagitis; M10.9 Gout, unspecified; Z90.89 Acquired absence of other organs; F17.210 Nicotine dependence, cigarettes, uncomplicated
CPT/HCPCS: 36415; 71045; 71045-26; 80048; 80053; 80061; 80305-QW; 80307; 81001; 82962; 83036; 83735; 84100; 84443; 84484; 85025; 93005; 96374; 99284; 99285-25; A9270-GY; J1650; J2060; J3411; J7030; J7050

== ENCOUNTER 2020-02-10 10:55 | Emergency (ER) | payer OTHER ==
[2020-02-10] MEDS ORDERED: Sodium Chloride 0.9% 2.5 ML Syringe FLUSH PRN (11:10)
[2020-02-10] MEDS ORDERED: Sodium Chloride 0.9% 10 ML Syringe FLUSH PRN (11:10)
--- NOTE | 2020-02-10 11:13 | EDM.PDOC ---
ED HPI GENERAL MEDICAL PROBLEM - General Stated Complaint: DIZZINESS Time Seen by Provider: 02/10/20 11:04 - History of Present Illness INITIAL COMMENTS - FREE TEXT/NARRATIVE: History of present illness: [] Is 4 days of symptoms. He feels like he has disequilibrium. He really feels like he has to be careful with walk straight and stand up straight. He does not have orthostatic symptoms or true rotational vertigo. He has some migratory vague pains in his extremities and especially left upper arm. He has chronic back pain and for the last 2 or more days he has been sleeping upright in a chair and very poorly. 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 Review of systems: As per history of present illness and below otherwise all systems reviewed and negative. Past medical history: As per history of present illness and as reviewed below otherwise noncontributory. Surgical history: As per history of present illness and as reviewed below otherwise noncontributory. Social history: No reported history of drug or alcohol abuse. Family history: As per history of present illness and as reviewed below otherwise noncontributory. Physical exam: Constitutional - well developed, well-nourished and in no acute distress HEENT - normocephalic, no evidence of trauma - external nose and mouth normal - no mass in neck and no JVD - mucosae moist EYES - full EOM, PERRL, no icterus - no evidence of inflammation, injection, or drainage Respiratory - no respiratory distress, equal bilateral expansion, lungs clear to auscultation and no abnormal lung sounds Cardiovascular - Regular Rhythm with S1 and S2 appreciated and no murmur, gallop or rub. GI - abdomen soft without distension or organomegaly - normal bowel sounds - no guard or rebound Musculoskeletal no gross deformity of long bones or joints - no tenderness, swelling or edema Neurologic - Alert and oriented times four - CN II-XII grossly intact - motor sensory and coordination symmetrically normal Psychiatric - appropriate mood and affect with normal thought content Hematologic - No petechiae or purpura - mucosa appropriate color and sclera not pale - normal nail bed color and refill Integument - no rash or evidence of trauma - normal turgor Diagnostics: [] Therapeutics: [] Impression: [] Plan: [] Definitive disposition and diagnosis as appropriate pending reevaluation and review of above. - Related Data Allergies Allergy/AdvReac Type Severity Reaction Status Date / Time No Known Allergies Allergy Verified 02/10/20 11:18 Home Meds: Home Meds Indomethacin 50 mg PO TID PRN 12/17/17 [History] Albuterol Sulfate 0.63 mg IH ASDIRECTED PRN 09/15/18 [History] allopurinoL [Zyloprim] 300 mg PO DAILY 09/15/18 [History] Hydrocodone/Acetaminophen [Hydrocodone-Acetamin 5-325 mg] 1 each PO ASDIRECTED PRN 09/28/18 [History] Budesonide/Formoterol [Symbicort 160-4.5 MCG] 1 puff INH BID 04/22/19 [History] Folic Acid 1 mg PO DAILY #30 tablet 06/27/19 [Rx] Thiamine [Vitamin B-1] 100 mg IV DAILY #30 mdv 06/27/19 [Rx] atorvaSTATin [Lipitor] 40 mg PO BEDTIME #30 tablet 06/27/19 [Rx] Meclizine [Antivert] 25 mg PO TID PRN #10 tab 02/10/20 [Rx] Past Medical History - Past Health History Medical/Surgical History: Denies Medical/Surgical History HEENT History: Reports: None Cardiovascular History: Reports: [place] Other Cardiovascular History: 2012: heart attack Respiratory History: Reports: Asthma Gastrointestinal History: Reports: GERD Genitourinary History: Reports: None Musculoskeletal History: Reports: Gout Neurological History: Reports: None Psychiatric History: Reports: None Endocrine/Metabolic History: Reports: None Insulin Pump Model and Moulder Operator: None Hematologic History: Reports: None Immunologic History: Reports: None Oncologic (Cancer) History: Reports: None Dermatologic History: Reports: None - Infectious Disease History Infectious Disease History: Reports: None - Past Surgical History Head Surgeries/Procedures: Reports: None HEENT Surgical History: Reports: Tonsillectomy Cardiovascular Surgical History: Reports: None Respiratory Surgical History: Reports: None GI Surgical History: Reports: None Male Surgical History: Reports: None Endocrine Surgical History: Reports: None Neurological Surgical History: Reports: None Musculoskeletal Surgical History: Reports: None Dermatological Surgical History: Reports: None Social & Family History - Family History Family Medical History: No Pertinent Family History Oncologic: Reports: Colon, Other (See Below) Other Oncologic Family History: testicle - Caffeine Use Caffeine Use: Reports: Tea ED ROS GENERAL - Review of Systems Review Of Systems: Comprehensive ROS is negative, except as noted in HPI. ED EXAM, GENERAL - Physical Exam Exam: See Below Free Text/Narrative:: My physical exam is in the HPI #1 Interpretation EKG Interpretation Comments: EKG done at 11:10 AM on 02/10/2020 and read at 1116. Normal sinus rhythm with a heart rate of 85 and an axis of 20. The ND interval is 169 and QT interval 436. QRS is normal ST and T are normal this is compared to 06/23/2019 and there is no change impression no acute injury Course - Vital Signs Text/Narrative:: Patient was up ambulatory and asymptomatic after liter fluids and [address] did not demonstrate any stroke and he is 4 days of symptoms. I do not think it is likely that this low risk patient had anything that would not be determined by CT but if his primary doctor wants to do an MRI is certainly advisable. He will be discharged in satisfactory condition and follow-up with his primary doctor. Last Recorded V/S: Last Vital Signs Temp 36.7 C 02/10/20 11:05 Pulse 89 02/10/20 12:16 Resp 16 02/10/20 11:05 BP 126/93 H 02/10/20 12:16 Pulse Ox 94 L 02/10/20 12:16 - Orders/Labs/Meds Orders: Active Orders 24 hr Category Date Time Status EKG Documentation Completion [RC] AM Care 02/10/20 11:10 Active Sodium Chloride 0.9% [Saline Flush] Med 02/10/20 11:10 Active 10 ml FLUSH ASDIRECTED PRN Sodium Chloride 0.9% [Saline Flush] Med 02/10/20 11:10 Active 2.5 ml FLUSH ASDIRECTED PRN Saline Lock Insert [OM.PC] Stat Oth 02/10/20 11:10 Ordered Medication Orders Sodium Chloride (Saline Flush) 10 ml FLUSH ASDIRECTED PRN PRN Reason: Keep Vein Open Last Admin: 02/10/20 12:42 Dose: 10 ml Documented by: SOLANGE Sodium Chloride (Saline Flush) 2.5 ml FLUSH ASDIRECTED PRN PRN Reason: Keep Vein Open Last Admin: 02/10/20 12:42 Dose: 2.5 ml Documented by: SOLANGE Labs: Laboratory Tests 02/10/20 02/10/20 Range/Units 11:40 11:40 WBC 7.66 (4.0-11.0) K/uL RBC 4.95 (4.50-5.90) M/uL Hgb 15.1 (13.0-17.0) g/dL Hct 45.1 (38.0-50.0) % MCV 91.1 (80.0-98.0) fL MCH 30.5 (27.0-32.0) pg MCHC 33.5 (31.0-37.0) g/dL RDW Std Deviation 43.5 (28.0-62.0) fl RDW Coeff of Howard 13 (11.0-15.0) % Plt Count 270 (150-400) K/uL MPV 10.80 (7.40-12.00) fL Neut % (Auto) 65.4 (48.0-80.0) % Lymph % (Auto) 26.0 (16.0-40.0) % [place] % (Auto) 6.8 (0.0-15.0) % Eos % (Auto) 1.3 (0.0-7.0) % Baso % (Auto) 0.5 (0.0-1.5) % Neut # (Auto) 5.0 (1.4-5.7) K/uL Lymph # (Auto) 2.0 (0.6-2.4) K/uL [place] # (Auto) 0.5 (0.0-0.8) K/uL Eos # (Auto) 0.1 (0.0-0.7) K/uL Baso # (Auto) 0.0 (0.0-0.1) K/uL Nucleated RBC % 0.0 /100WBC Nucleated RBCs # 0 K/uL Sodium 140 (136-148) mmol/L Potassium 4.2 (3.5-5.1) mmol/L Chloride 103 (98-107) mmol/L Carbon Dioxide 26.7 (21.0-32.0) mmol/L BUN 18 (7.0-18.0) mg/dL Creatinine 1.3 (0.8-1.3) mg/dL Est Cr Clr Drug Dosing 74.87 mL/min Estimated GFR (MDRD) 60.0 ml/min Glucose 98 (74-106) mg/dL Calcium 9.5 (8.5-10.1) mg/dL Total Bilirubin 0.4 (0.2-1.0) mg/dL AST 24 (15-37) IU/L ALT 47 (14-63) IU/L Alkaline Phosphatase 74 (46-116) U/L Troponin I < 0.050 (0.000-0.056) ng/mL Total Protein 7.8 (6.4-8.2) g/dL Albumin 4.1 (3.4-5.0) g/dL Globulin 3.7 (2.6-4.0) g/dL Albumin/Globulin Ratio 1.1 (0.9-1.6) Meds: Medications Generic Name Dose Route Start Last Admin Trade Name Freq PRN Reason Stop Dose Admin Sodium Chloride 10 ml 02/10/20 11:10 02/10/20 12:42 Saline Flush FLUSH 10 ml ASDIRECTED PRN Administration Keep Vein Open Sodium Chloride 2.5 ml 02/10/20 11:10 02/10/20 12:42 Saline Flush FLUSH 2.5 ml ASDIRECTED PRN Administration Keep Vein Open Discontinued Medications Generic Name Dose Route Start Last Admin Trade Name Freq PRN Reason Stop Dose Admin Sodium Chloride 1,000 mls @ 999 mls/hr 02/10/20 12:27 02/10/20 12:41 Normal Saline IV 02/10/20 13:27 999 mls/hr .Bolus ONE Administration Meclizine HCl 25 mg 02/10/20 12:28 02/10/20 12:39 Antivert PO 02/10/20 12:29 25 mg ONETIME ONE Administration Departure - Departure Time of Disposition: 14:11 Disposition: Home, Self-Care 01 Condition: Good Clinical Impression: Dizzy - Discharge Information Instructions: Dizziness, [id number] Referrals: Shashank Dhillon MD [Primary Care Provider] - Additional Instructions: [facility] - Neurology Professional Building [address] [place] [address], [address] [place] [address] [facility] - Primary Care [address] [place] [address] [facility] [address] [place] [id number] The following information is given to patients seen in the emergency department who are being discharged to home. This information is to outline your options for follow-up care. We provide all patients seen in our emergency department with a follow-up referral. The need for follow-up, as well as the timing and circumstances, are variable depending upon the specifics of your emergency department visit. If you don't have a primary care physician on staff, we will provide you with a referral. We always advise you to contact your personal physician following an emergency department visit to inform them of the circumstance of the visit and for follow-up with them and/or the need for any referrals to a consulting specialist. The emergency department will also refer you to a specialist when appropriate. This referral assures that you have the opportunity for follow-up care with a specialist. All of these measure are taken in an effort to provide you with optimal care, which includes your follow-up. Under all circumstances we always encourage you to contact your private physician who remains a resource for coordinating your care. When calling for follow-up care, please make the office aware that this follow-up is from your recent emergency room visit. If for any reason you are refused follow-up, please contact the [facility] Emergency Department at and asked to speak to the emergency department charge nurse. Sepsis Event Note (ED) - Focused Exam Vital Signs: Vital Signs Temp Pulse Resp BP Pulse Ox 02/10/20 12:16 89 126/93 H 94 L 02/10/20 11:46 81 118/87 02/10/20 11:05 36.7 C 94 16 131/85 100 - My Orders Last 24 Hours: My Active Orders 02/10/20 11:10 EKG Documentation Completion [RC] AM Sodium Chloride 0.9% [Saline Flush] 10 ml FLUSH ASDIRECTED PRN Sodium Chloride 0.9% [Saline Flush] 2.5 ml FLUSH ASDIRECTED PRN Saline Lock Insert [OM.PC] Stat - Assessment/Plan Last 24 Hours: My Active Orders 02/10/20 11:10 EKG Documentation Completion [RC] AM Sodium Chloride 0.9% [Saline Flush] 10 ml FLUSH ASDIRECTED PRN Sodium Chloride 0.9% [Saline Flush] 2.5 ml FLUSH ASDIRECTED PRN Saline Lock Insert [OM.PC] Stat
--- NOTE | 2020-02-10 12:04 | CT ---
HISTORY: Disequilibrium for 4 days. COMPARISON: 04/07/2018. TECHNIQUE: Noncontrast axial images were obtained through the brain. FINDINGS: [place]-white matter differentiation is preserved. No evidence for acute intracranial hemorrhage or infarction. No midline shift or mass effect. The ventricles are nondilated and symmetric. No abnormal intra or extra-axial fluid collection. The bony calvaria are intact. Visualized paranasal sinuses and mastoid air cells are clear. IMPRESSION: No acute intracranial pathology. Please note that all CT scans at this facility use dose modulation, iterative reconstruction, and/or weight-based dosing when appropriate to reduce radiation dose to as low as reasonably achievable. Dictated by Bibi Ba MD @ Feb 10 2020 12:01PM Signed by Dr. Bibi Ba @ Feb 10 2020 12:02PM
[2020-02-10 12:12] LABS: BLOOD UREA NITROGEN,BUN 18 mg/dL (7.0-18.0); CARBON DIOXIDE,CO2 26.7 mmol/L (21.0-32.0); CHLORIDE,CL 103 mmol/L (98-107); GLUCOSE RANDOM 98 mg/dL (74-106); POTASSIUM,K 4.2 mmol/L (3.5-5.1); SODIUM,NA 140 mmol/L (136-148)
[2020-02-10] MEDS ORDERED: Sodium Chloride 0.9% 1,000 ML IV ONE (12:27)
[2020-02-10] MEDS ORDERED: Meclizine 25 MG Tab PO ONE (12:28)
[2020-02-10 14:31] VITALS: BP 130/100; PULSE 94
== END 2020-02-10 14:54 | disposition home or self-care (01) ==
LOC: MW.ED 10:55
DX: R42 Dizziness and giddiness (principal); I25.2 Old myocardial infarction; J45.909 Unspecified asthma, uncomplicated; Z79.899 Other long term (current) drug therapy
CPT/HCPCS: 36415; 70450; 80053; 84484; 85025; 93005; 99284; A9270; J7030; 93010

== ENCOUNTER 2020-05-13 18:55 | Emergency (ER) | payer OTHER | END 2020-05-13 20:00 | disposition left against medical advice (07) | LOC: MW.ED 18:55 | DX: Z53.21 Procedure and treatment not carried out due to patient leaving prior to being seen by health care provider (principal) | CPT/HCPCS: 82962 ==

== ENCOUNTER 2020-05-29 09:36 | Emergency (ER) | payer OTHER ==
--- NOTE | 2020-05-29 09:42 | EDM.PDOC ---
ED HPI GENERAL MEDICAL PROBLEM - General Chief Complaint: General Stated Complaint: DOES NOT FEEL RIGHT Time Seen by Provider: 05/29/20 09:40 Source of Information: Reports: Patient History Limitations: Reports: No Limitations - History of Present Illness INITIAL COMMENTS - FREE TEXT/NARRATIVE: . Is a 45-year-old male who presents today for multiple complaints. Patient states he has not been feeling well for the past few days. Patient notes that he thought he has some left-sided pressure feeling in his left arm. Patient states that he is not sure if he had any chest pressure but mostly his forms and arm started in his upper arm and then later in the day went down to his lower arm. Patient denies any numbness or tingling to the arm or discoloration. Patient denies any falls. Patient denies any fever chills. Patient did mention a few days ago he has some nausea but did not have any vomiting still tolerating p.o. - Related Data Allergies Allergy/AdvReac Type Severity Reaction Status Date / Time No Known Allergies Allergy Verified 05/29/20 09:53 Home Meds: Home Meds Indomethacin 50 mg PO TID PRN 12/17/17 [History] Albuterol Sulfate 0.63 mg IH ASDIRECTED PRN 09/15/18 [History] allopurinoL [Zyloprim] 300 mg PO DAILY 09/15/18 [History] Hydrocodone/Acetaminophen [Hydrocodone-Acetamin 5-325 mg] 1 each PO ASDIRECTED PRN 09/28/18 [History] Budesonide/Formoterol [Symbicort 160-4.5 MCG] 1 puff INH BID 04/22/19 [History] Folic Acid 1 mg PO DAILY #30 tablet 06/27/19 [Rx] Thiamine [Vitamin B-1] 100 mg IV DAILY #30 mdv 06/27/19 [Rx] atorvaSTATin [Lipitor] 40 mg PO BEDTIME #30 tablet 06/27/19 [Rx] Meclizine [Antivert] 25 mg PO TID PRN #10 tab 02/10/20 [Rx] Past Medical History - Past Health History Medical/Surgical History: Denies Medical/Surgical History HEENT History: Reports: None Cardiovascular History: Reports: [place] Other Cardiovascular History: 2012: heart attack Respiratory History: Reports: Asthma, COPD Gastrointestinal History: Reports: GERD Genitourinary History: Reports: None Musculoskeletal History: Reports: Gout Neurological History: Reports: None Psychiatric History: Reports: None Endocrine/Metabolic History: Reports: None Insulin Pump Model and Logistic Manager: None Hematologic History: Reports: None Immunologic History: Reports: None Oncologic (Cancer) History: Reports: None Dermatologic History: Reports: None - Infectious Disease History Infectious Disease History: Reports: None - Past Surgical History Head Surgeries/Procedures: Reports: None HEENT Surgical History: Reports: Tonsillectomy Cardiovascular Surgical History: Reports: None Respiratory Surgical History: Reports: None GI Surgical History: Reports: None Male Surgical History: Reports: None Endocrine Surgical History: Reports: None Neurological Surgical History: Reports: None Musculoskeletal Surgical History: Reports: None Dermatological Surgical History: Reports: None Social & Family History - Family History Family Medical History: No Pertinent Family History Oncologic: Reports: Colon, Other (See Below) Other Oncologic Family History: testicle - Caffeine Use Caffeine Use: Reports: Tea ED ROS GENERAL - Review of Systems Review Of Systems: See Below Constitutional: Reports: No Symptoms HEENT: Reports: No Symptoms Respiratory: Reports: No Symptoms Cardiovascular: Reports: No Symptoms Endocrine: Reports: No Symptoms GI/Abdominal: Reports: No Symptoms : Reports: No Symptoms Musculoskeletal: Reports: Arm Pain Skin: Reports: No Symptoms Neurological: Reports: No Symptoms Psychiatric: Reports: No Symptoms Hematologic/Lymphatic: Reports: No Symptoms Immunologic: Reports: No Symptoms ED EXAM, GENERAL - Physical Exam Exam: See Below Exam Limited By: No Limitations General Appearance: Alert, WD/WN Eye Exam: Bilateral Eye: EOMI, PERRL Head: Atraumatic, Normocephalic Neck: Normal Inspection, Non-Tender Respiratory/Chest: No Respiratory Distress, Lungs Clear GI/Abdominal: Normal Bowel Sounds, Soft, Non-Tender Extremities: Normal Inspection, Normal Range of Motion, Non-Tender Neurological: Alert, Oriented, Normal Cognition, Normal Gait #1 Interpretation EKG Date: 05/29/20 Time: 09:45 Rhythm: NSR Rate (Beats/Min): 74 ST-T: Normal Course - Vital Signs Last Recorded V/S: Last Vital Signs Temp 97.4 F 05/29/20 09:53 Pulse 73 05/29/20 12:30 Resp 16 05/29/20 11:46 BP 115/85 05/29/20 12:30 Pulse Ox 96 05/29/20 12:30 - Orders/Labs/Meds Labs: Laboratory Tests 05/29/20 05/29/20 05/29/20 Range/Units 09:45 09:45 09:51 WBC 6.99 (4.0-11.0) K/uL RBC 5.18 (4.50-5.90) M/uL Hgb 15.3 (13.0-17.0) g/dL Hct 45.5 (38.0-50.0) % MCV 87.8 (80.0-98.0) fL MCH 29.5 (27.0-32.0) pg MCHC 33.6 (31.0-37.0) g/dL RDW Std Deviation 43.3 (28.0-62.0) fl RDW Coeff of Howard 14 (11.0-15.0) % Plt Count 291 (150-400) K/uL MPV 11.00 (7.40-12.00) fL Neut % (Auto) 68.5 (48.0-80.0) % Lymph % (Auto) 23.9 (16.0-40.0) % [place] % (Auto) 6.0 (0.0-15.0) % Eos % (Auto) 0.9 (0.0-7.0) % Baso % (Auto) 0.7 (0.0-1.5) % Neut # (Auto) 4.8 (1.4-5.7) K/uL Lymph # (Auto) 1.7 (0.6-2.4) K/uL [place] # (Auto) 0.4 (0.0-0.8) K/uL Eos # (Auto) 0.1 (0.0-0.7) K/uL Baso # (Auto) 0.1 (0.0-0.1) K/uL Nucleated RBC % 0.0 /100WBC Nucleated RBCs # 0 K/uL Sodium 138 (136-148) mmol/L Potassium 4.1 (3.5-5.1) mmol/L Chloride 103 (98-107) mmol/L Carbon Dioxide 23.5 (21.0-32.0) mmol/L BUN 23 H (7.0-18.0) mg/dL Creatinine 1.3 (0.8-1.3) mg/dL Est Cr Clr Drug Dosing 74.09 mL/min Estimated GFR (MDRD) 59.7 ml/min Glucose 95 (74-106) mg/dL POC Glucose 90 (60-110) mg/dL Calcium 8.7 (8.5-10.1) mg/dL Magnesium 2.1 (1.8-2.4) mg/dL Total Bilirubin 0.4 (0.2-1.0) mg/dL AST 22 (15-37) IU/L ALT 38 (14-63) IU/L Alkaline Phosphatase 71 (46-116) U/L Creatine Kinase 191 (26-308) U/L Troponin I < 0.050 (0.000-0.056) ng/mL Total Protein 7.8 (6.4-8.2) g/dL Albumin 4.0 (3.4-5.0) g/dL Globulin 3.8 (2.6-4.0) g/dL Albumin/Globulin Ratio 1.1 (0.9-1.6) Lipase 141 (73-393) U/L 05/29/20 Range/Units 13:10 WBC (4.0-11.0) K/uL RBC (4.50-5.90) M/uL Hgb (13.0-17.0) g/dL Hct (38.0-50.0) % MCV (80.0-98.0) fL MCH (27.0-32.0) pg MCHC (31.0-37.0) g/dL RDW Std Deviation (28.0-62.0) fl RDW Coeff of Howard (11.0-15.0) % Plt Count (150-400) K/uL MPV (7.40-12.00) fL Neut % (Auto) (48.0-80.0) % Lymph % (Auto) (16.0-40.0) % [place] % (Auto) (0.0-15.0) % Eos % (Auto) (0.0-7.0) % Baso % (Auto) (0.0-1.5) % Neut # (Auto) (1.4-5.7) K/uL Lymph # (Auto) (0.6-2.4) K/uL [place] # (Auto) (0.0-0.8) K/uL Eos # (Auto) (0.0-0.7) K/uL Baso # (Auto) (0.0-0.1) K/uL Nucleated RBC % /100WBC Nucleated RBCs # K/uL Sodium (136-148) mmol/L Potassium (3.5-5.1) mmol/L Chloride (98-107) mmol/L Carbon Dioxide (21.0-32.0) mmol/L BUN (7.0-18.0) mg/dL Creatinine (0.8-1.3) mg/dL Est Cr Clr Drug Dosing mL/min Estimated GFR (MDRD) ml/min Glucose (74-106) mg/dL POC Glucose (60-110) mg/dL Calcium (8.5-10.1) mg/dL Magnesium (1.8-2.4) mg/dL Total Bilirubin (0.2-1.0) mg/dL AST (15-37) IU/L ALT (14-63) IU/L Alkaline Phosphatase (46-116) U/L Creatine Kinase 171 (26-308) U/L Troponin I < 0.050 (0.000-0.056) ng/mL Total Protein (6.4-8.2) g/dL Albumin (3.4-5.0) g/dL Globulin (2.6-4.0) g/dL Albumin/Globulin Ratio (0.9-1.6) Lipase (73-393) U/L - Re-Assessments/Exams Free Text/Narrative Re-Assessment/Exam: 05/29/20 11:56 Patient initial troponins are negative as well as CT head. Patient remains at baseline his 2nd set of troponins are negative will discharge home. 05/29/20 14:11 Patient second set negative patient still chest pain and arm pain free will be discharged home. Departure - Departure Time of Disposition: 14:12 Disposition: Home, Self-Care 01 Condition: Good Clinical Impression: Chest pain - Discharge Information *PRESCRIPTION DRUG MONITORING PROGRAM REVIEWED*: Not Applicable *COPY OF PRESCRIPTION DRUG MONITORING REPORT IN PATIENT [place]: Not Applicable Instructions: Nonspecific Chest Pain, Adult Referrals: Shashank Dhillon MD [Primary Care Provider] - Forms: ED Department Discharge Additional Instructions: The following information is given to patients seen in the emergency department who are being discharged to home. This information is to outline your options for follow-up care. We provide all patients seen in our emergency department with a follow-up referral. The need for follow-up, as well as the timing and circumstances, are variable depending upon the specifics of your emergency department visit. If you don't have a primary care physician on staff, we will provide you with a referral. We always advise you to contact your personal physician following an emergency department visit to inform them of the circumstance of the visit and for follow-up with them and/or the need for any referrals to a consulting specialist. The emergency department will also refer you to a specialist when appropriate. This referral assures that you have the opportunity for follow-up care with a specialist. All of these measure are taken in an effort to provide you with optimal care, which includes your follow-up. Under all circumstances we always encourage you to contact your private physician who remains a resource for coordinating your care. When calling for follow-up care, please make the office aware that this follow-up is from your recent emergency room visit. If for any reason you are refused follow-up, please contact the [facility] Emergency Department at and asked to speak to the emergency department charge nurse. Please follow up with your primary care physician. If you do not have a primary care physician, see below: [facility] [address] [place] [id number] [facility] [address] [place] [id number] Your exam today did not show any concerning findings. We still like for you to follow-up with your primary care physician or cardiology. If you have any other concerning symptoms please return to the ED. Sepsis Event Note (ED) - Focused Exam Vital Signs: Vital Signs Temp Pulse Resp BP Pulse Ox 05/29/20 12:30 73 115/85 96 05/29/20 11:46 68 16 120/86 96 05/29/20 11:15 67 17 118/83 96 05/29/20 11:00 72 16 120/89 95 05/29/20 10:45 74 16 117/81 96 05/29/20 10:15 79 16 125/82 95 05/29/20 09:53 97.4 F 72 17 112/87 98 - Assessment/Plan Plan: Patient is a 45-year-old male who presents today with multiple complaints. Patient noticed left arm tightness yesterday. Patient current has no chest pain fever chills nausea vomiting. Will obtain labs EKG and some imaging.
[2020-05-29 10:30] LABS: BLOOD UREA NITROGEN,BUN 23 mg/dL (7.0-18.0); CARBON DIOXIDE,CO2 23.5 mmol/L (21.0-32.0); CHLORIDE,CL 103 mmol/L (98-107); GLUCOSE RANDOM 95 mg/dL (74-106); LIPASE 141 U/L (73-393); POTASSIUM,K 4.1 mmol/L (3.5-5.1); SODIUM,NA 138 mmol/L (136-148)
--- NOTE | 2020-05-29 11:32 | CR ---
INDICATION: Left arm weakness TECHNIQUE: Chest 1 views COMPARISON: June 25, 2019 FINDINGS: Cardiovascular and mediastinum: Heart size and vasculature are normal in caliber and appearance. Lungs and pleural spaces: Lungs are clear. No sign of infiltrate or mass. No sign of pleural effusion. No pneumothorax. Bones and soft tissues: No significant findings. IMPRESSION: No acute findings and no significant changes from the prior exam. Dictated by Philip Patel MD @ May 29 2020 11:30AM Signed by Dr. Philip Patel @ May 29 2020 11:31AM
--- NOTE | 2020-05-29 11:34 | CT ---
INDICATION: Left arm weakness. COMPARISON: CT head 02/10/2020. TECHNIQUE: CT of the head without IV contrast. Coronal and sagittal reconstructions are provided. FINDINGS: No intracranial hemorrhage, mass effect, or evidence of acute infarct. No midline shift. No abnormal extra-axial fluid collections. Normal caliber ventricular system. Orbits and extraocular muscles are symmetric. Paranasal sinuses and mastoid air cells are clear. No acute fracture. Soft tissues are unremarkable. IMPRESSION: : No acute intracranial findings. Please note that all CT scans at this facility use dose modulation, iterative reconstruction, and/or weight-based dosing when appropriate to reduce radiation dose to as low as reasonably achievable. Dictated by Wilma Mott MD @ May 29 2020 11:28AM Signed by Dr. Wilma Mott @ May 29 2020 11:33AM
[2020-05-29 14:22] VITALS: BP 126/90; PULSE 70
== END 2020-05-29 14:22 | disposition home or self-care (01) ==
LOC: MW.ED 09:36
DX: R07.9 Chest pain, unspecified (principal); M79.602 Pain in left arm; J44.9 Chronic obstructive pulmonary disease, unspecified; I25.2 Old myocardial infarction; Z79.899 Other long term (current) drug therapy
CPT/HCPCS: 36415; 70450; 70450-26; 71046; 71046-26; 80053; 82550; 82962; 83690; 83735; 84484; 85025; 99285-25

== ENCOUNTER 2020-10-08 13:06 | Emergency (ER) | payer OTHER ==
--- NOTE | 2020-10-08 13:18 | EDM.PDOC ---
ED HPI GENERAL MEDICAL PROBLEM - General Chief Complaint: General Stated Complaint: CP,SOB,SHOULDER PAIN Time Seen by Provider: 10/08/20 13:06 Source of Information: Reports: Patient History Limitations: Reports: No Limitations - History of Present Illness INITIAL COMMENTS - FREE TEXT/NARRATIVE: 45-year-old male past medical history methamphetamine abuse, alcohol abuse, anxiety presents for multiple complaints. Patient has noted for the last several days left anterior chest and shoulder pain. He also notes some shortness of breath. He does note that it is a little worse with exertion. He has had a negative stress test but this was several years ago. He has never had a cardiac cath. He is a non-smoker. He denies family history of cardiac problems. He notes that he was taking naproxen for back pain and symptoms seem to be worse after he started the naproxen. The pain itself does not seem to be exertional, but the shortness of breath is. Patient is already had COVID-19 but has not yet had the COVID-19 vaccination. left shoulder blade Pain Score (Numeric/FACES): 3 - Related Data Allergies Allergy/AdvReac Type Severity Reaction Status Date / Time No Known Allergies Allergy Verified 10/08/20 13:26 Home Meds: Home Meds Indomethacin 50 mg PO TID PRN 12/17/17 [History] Albuterol Sulfate 0.63 mg IH ASDIRECTED PRN 09/15/18 [History] allopurinoL [Zyloprim] 300 mg PO DAILY 09/15/18 [History] Budesonide/Formoterol [Symbicort 160-4.5 MCG] 1 puff INH BID 04/22/19 [History] Folic Acid 1 mg PO DAILY #30 tablet 06/27/19 [Rx] Thiamine [Vitamin B-1] 100 mg IV DAILY #30 mdv 06/27/19 [Rx] atorvaSTATin [Lipitor] 40 mg PO BEDTIME #30 tablet 06/27/19 [Rx] Past Medical History - Past Health History Medical/Surgical History: Denies Medical/Surgical History HEENT History: Reports: None Cardiovascular History: Reports: [place] Other Cardiovascular History: 2012: heart attack Respiratory History: Reports: Asthma, COPD Gastrointestinal History: Reports: GERD Genitourinary History: Reports: None Musculoskeletal History: Reports: Gout Neurological History: Reports: None Psychiatric History: Reports: None Endocrine/Metabolic History: Reports: None Insulin Pump Model and Packaging Supervisor: None Hematologic History: Reports: None Immunologic History: Reports: None Oncologic (Cancer) History: Reports: None Dermatologic History: Reports: None - Infectious Disease History Infectious Disease History: Reports: None - Past Surgical History Head Surgeries/Procedures: Reports: None HEENT Surgical History: Reports: Tonsillectomy Cardiovascular Surgical History: Reports: None Respiratory Surgical History: Reports: None GI Surgical History: Reports: None Male Surgical History: Reports: None Endocrine Surgical History: Reports: None Neurological Surgical History: Reports: None Musculoskeletal Surgical History: Reports: None Dermatological Surgical History: Reports: None Social & Family History - Family History Family Medical History: No Pertinent Family History Oncologic: Reports: Colon, Other (See Below) Other Oncologic Family History: testicle - Caffeine Use Caffeine Use: Reports: Tea ED ROS GENERAL - Review of Systems Review Of Systems: Comprehensive ROS is negative, except as noted in HPI. ED EXAM, GENERAL - Physical Exam Exam: See Below Exam Limited By: No Limitations General Appearance: Alert, WD/WN, No Apparent Distress Ears: Hearing Grossly Normal Throat/Mouth: Normal Voice, No Airway Compromise Head: Atraumatic, Normocephalic Neck: Normal Inspection Respiratory/Chest: No Respiratory Distress, Lungs Clear, Normal Breath Sounds, No Accessory Muscle Use Cardiovascular: Normal Peripheral Pulses, Regular Rate, Rhythm, No Edema Extremities: Normal Inspection Neurological: Alert, Normal Cognition, Normal Gait Psychiatric: Normal Affect, Normal Mood Skin Exam: Warm, Dry, Intact, Normal Color #1 Interpretation EKG Date: 10/08/20 Time: 13:19 Rhythm: NSR Rate (Beats/Min): 65 [place]: Normal P-Wave: Present QRS: Normal ST-T: Normal QT: Normal CO/PQ Interval: 181 EKG Interpretation Comments: normal EKG, no ischemic changes Course - Vital Signs Last Recorded V/S: Last Vital Signs Temp 98.4 F 10/08/20 13:22 Pulse 75 10/08/20 13:46 Resp 18 10/08/20 13:46 BP 159/96 H 10/08/20 13:46 Pulse Ox 95 10/08/20 13:46 - Orders/Labs/Meds Orders: Active Orders 24 hr Category Date Time Status EKG Documentation Completion [RC] STAT Care 10/08/20 13:23 Active Sodium Chloride 0.9% [Saline Flush] Med 10/08/20 13:23 Active 10 ml FLUSH ASDIRECTED PRN Sodium Chloride 0.9% [Saline Flush] Med 10/08/20 13:23 Active 2.5 ml FLUSH ASDIRECTED PRN Saline Lock Insert [OM.PC] Stat Oth 10/08/20 13:23 Ordered Medication Orders Sodium Chloride (Sodium Chloride 0.9% 10 Ml Syringe) 10 ml FLUSH ASDIRECTED PRN PRN Reason: Keep Vein Open Last Admin: 10/08/20 13:30 Dose: 10 ml Documented by: ASHISH Sodium Chloride (Sodium Chloride 0.9% 2.5 Ml Syringe) 2.5 ml FLUSH ASDIRECTED PRN PRN Reason: Keep Vein Open Last Admin: 10/08/20 13:30 Dose: 2.5 ml Documented by: ASHISH Labs: Laboratory Tests 10/08/20 10/08/20 10/08/20 Range/Units 13:22 13:22 13:35 WBC 7.39 (4.0-11.0) K/uL RBC 4.73 (4.50-5.90) M/uL Hgb 14.3 (13.0-17.0) g/dL Hct 42.2 (38.0-50.0) % MCV 89.2 (80.0-98.0) fL MCH 30.2 (27.0-32.0) pg MCHC 33.9 (31.0-37.0) g/dL RDW Std Deviation 46.4 (28.0-62.0) fl RDW Coeff of Howard 14 (11.0-15.0) % Plt Count 216 (150-400) K/uL MPV 10.50 (7.40-12.00) fL Neut % (Auto) 58.2 (48.0-80.0) % Lymph % (Auto) 31.0 (16.0-40.0) % [place] % (Auto) 8.5 (0.0-15.0) % Eos % (Auto) 1.8 (0.0-7.0) % Baso % (Auto) 0.5 (0.0-1.5) % Neut # (Auto) 4.3 (1.4-5.7) K/uL Lymph # (Auto) 2.3 (0.6-2.4) K/uL [place] # (Auto) 0.6 (0.0-0.8) K/uL Eos # (Auto) 0.1 (0.0-0.7) K/uL Baso # (Auto) 0.0 (0.0-0.1) K/uL Nucleated RBC % 0.0 /100WBC Nucleated RBCs # 0 K/uL Sodium 139 (136-148) mmol/L Potassium 3.9 (3.5-5.1) mmol/L Chloride 104 (98-107) mmol/L Carbon Dioxide 24.0 (21.0-32.0) mmol/L BUN 21 H (7.0-18.0) mg/dL Creatinine 1.2 (0.8-1.3) mg/dL Est Cr Clr Drug Dosing 80.27 mL/min Estimated GFR (MDRD) > 60.0 ml/min Glucose 86 (74-106) mg/dL Calcium 8.6 (8.5-10.1) mg/dL Total Bilirubin 0.3 (0.2-1.0) mg/dL AST 33 (15-37) IU/L ALT 70 H (14-63) IU/L Alkaline Phosphatase 81 (46-116) U/L Troponin I < 0.050 (0.000-0.056) ng/mL Total Protein 7.2 (6.4-8.2) g/dL Albumin 4.0 (3.4-5.0) g/dL Globulin 3.2 (2.6-4.0) g/dL Albumin/Globulin Ratio 1.3 (0.9-1.6) SARS-CoV-2 RNA (VERONICA) NEGATIVE (NEGATIVE) Meds: Medications Generic Name Dose Route Start Last Admin Trade Name Freq PRN Reason Stop Dose Admin Sodium Chloride 10 ml 10/08/20 13:23 10/08/20 13:30 Sodium Chloride 0.9% 10 Ml Syringe FLUSH 10 ml ASDIRECTED PRN Administration Keep Vein Open Sodium Chloride 2.5 ml 10/08/20 13:23 10/08/20 13:30 Sodium Chloride 0.9% 2.5 Ml Syringe FLUSH 2.5 ml ASDIRECTED PRN Administration Keep Vein Open Discontinued Medications Generic Name Dose Route Start Last Admin Trade Name Freq PRN Reason Stop Dose Admin Aspirin 324 mg 10/08/20 13:23 10/08/20 13:30 Aspirin 81 Mg Tab.Chew PO 10/08/20 13:24 324 mg ONETIME ONE Administration Sodium Chloride 1,000 mls @ 999 mls/hr 10/08/20 13:23 10/08/20 13:30 Normal Saline IV 10/08/20 14:23 999 mls/hr .Bolus ONE Administration - Re-Assessments/Exams Free Text/Narrative Re-Assessment/Exam: 10/08/20 14:41 Labs unremarkable. Will discharge patient with cardiology follow-up. He has been placed in the cardiology follow-up list. Return precautions were discussed. Departure - Departure Time of Disposition: 14:41 Disposition: Home, Self-Care 01 Condition: Good Clinical Impression: Chest pain Qualifiers: Chest pain type: unspecified Qualified Code(s): R07.9 - Chest pain, unspecified - Discharge Information Instructions: Nonspecific Chest Pain, Adult, COVID-19 Vaccine Information Referrals: Shashank Dhillon MD [Primary Care Provider] - Forms: ED Department Discharge Additional Instructions: Your emergency department work-up was unremarkable. However given the symptoms you are describing I believe you would benefit from follow-up with a masonry contractor. I have placed you on her cardiology follow-up list. I have also provided the information below for the cardiology department in case they do not reach out to you directly. [facility] [address] [place] [id number] The best way to protect yourself and others from COVID-19 is to take one of the three safe and effective vaccines that have been proven to substantially reduce risk of both infection and severe illness. [facility] is currently offering COVID vaccinations for anyone age 18 and older. To schedule an appointment call [phone]. Or, to be contacted by our clinics about scheduling your vaccine online, please go to [email or web address] The following information is given to patients seen in the emergency department who are being discharged to home. This information is to outline your options for follow-up care. We provide all patients seen in our emergency department with a follow-up referral. The need for follow-up, as well as the timing and circumstances, are variable depending upon the specifics of your emergency department visit. If you don't have a primary care physician on staff, we will provide you with a referral. We always advise you to contact your personal physician following an emergency department visit to inform them of the circumstance of the visit and for follow-up with them and/or the need for any referrals to a consulting specialist. The emergency department will also refer you to a specialist when appropriate. This referral assures that you have the opportunity for follow-up care with a specialist. All of these measure are taken in an effort to provide you with optimal care, which includes your follow-up. Under all circumstances we always encourage you to contact your private physician who remains a resource for coordinating your care. When calling for follow-up care, please make the office aware that this follow-up is from your recent emergency room visit. If for any reason you are refused follow-up, please contact the [facility] Emergency Department at and asked to speak to the emergency department charge nurse. Please follow up with your primary care physician. If you do not have a primary care physician, see below: [facility] [address] [place] [id number] [facility] [address] [place] [id number] Sepsis Event Note (ED) - Focused Exam Vital Signs: Vital Signs Temp Pulse Resp BP Pulse Ox 10/08/20 13:46 75 18 159/96 H 95 10/08/20 13:32 70 152/100 H 10/08/20 13:22 98.4 F 72 18 135/94 H 97 - My Orders Last 24 Hours: My Active Orders 10/08/20 13:23 EKG Documentation Completion [RC] STAT Sodium Chloride 0.9% [Saline Flush] 10 ml FLUSH ASDIRECTED PRN Sodium Chloride 0.9% [Saline Flush] 2.5 ml FLUSH ASDIRECTED PRN Saline Lock Insert [OM.PC] Stat - Assessment/Plan Last 24 Hours: My Active Orders 10/08/20 13:23 EKG Documentation Completion [RC] STAT Sodium Chloride 0.9% [Saline Flush] 10 ml FLUSH ASDIRECTED PRN Sodium Chloride 0.9% [Saline Flush] 2.5 ml FLUSH ASDIRECTED PRN Saline Lock Insert [OM.PC] Stat
[2020-10-08] MEDS ORDERED: Sodium Chloride 0.9% 1,000 ML IV ONE (13:23)
[2020-10-08] MEDS ORDERED: Sodium Chloride 0.9% 10 ML Syringe FLUSH PRN (13:23)
[2020-10-08] MEDS ORDERED: Sodium Chloride 0.9% 2.5 ML Syringe FLUSH PRN (13:23)
[2020-10-08] MEDS ORDERED: Aspirin 81 MG Tab.Chew PO ONE (13:23)
[2020-10-08 14:14] LABS: BLOOD UREA NITROGEN,BUN 21 mg/dL (7.0-18.0); CHLORIDE,CL 104 mmol/L (98-107); GLUCOSE RANDOM 86 mg/dL (74-106); POTASSIUM,K 3.9 mmol/L (3.5-5.1); SODIUM,NA 139 mmol/L (136-148)
--- NOTE | 2020-10-08 14:31 | CR ---
INDICATION: Chest pain, shortness of breath TECHNIQUE: Chest radiograph 1 view COMPARISON: 05/29/2020 FINDINGS: Mediastinum: The mediastinum is normal in appearance. The heart silhouette is normal in size and morphology. Lung: Both lungs are unremarkable in appearance. No sign of pleural effusion seen. No pneumothorax is identified. Bone and Soft tissue: Unremarkable for age. IMPRESSION: 1. No acute cardiopulmonary disease is seen. Dictated by: Moe Glasgow MD @ 10/08/2020 14:28:42 (Electronically Signed)
[2020-10-08 15:02] VITALS: BP 133/95; PULSE 64
== END 2020-10-08 15:03 | disposition home or self-care (01) ==
LOC: MW.ED 13:06
DX: R07.89 Other chest pain (principal); M25.512 Pain in left shoulder; I25.2 Old myocardial infarction; J44.9 Chronic obstructive pulmonary disease, unspecified; M10.9 Gout, unspecified; Z79.899 Other long term (current) drug therapy; Z20.822 Contact with and (suspected) exposure to COVID-19
CPT/HCPCS: 36415; 71045; 80053; 84484; 85025; 87635; 93005; 99285; A9270; J7030; U0002

== ENCOUNTER 2021-12-27 07:26 | Emergency (ER) | payer OTHER ==
[2021-12-27] MEDS ORDERED: Sodium Chloride 0.9% 2.5 ML Syringe FLUSH PRN (08:06)
[2021-12-27] MEDS ORDERED: Sodium Chloride 0.9% 10 ML Syringe FLUSH PRN (08:06)
[2021-12-27] MEDS ORDERED: Sodium Chloride 0.9% 1,000 ML IV ONE (08:06)
[2021-12-27 08:26] LABS: CARBON DIOXIDE,CO2 22.7 mmol/L (21.0-32.0); POTASSIUM,K 3.9 mmol/L (3.5-5.1)
[2021-12-27] MEDS ORDERED: Morphine 4 MG/ML Syringe IVPUSH ONE (10:23)
[2021-12-27] MEDS ORDERED: Iopamidol 755 Mg/ML 75 ML Bottle IVPUSH ONE (11:04)
[2021-12-27] MEDS ORDERED: Iopamidol 755 Mg/ML 100 ML Bottle IVPUSH STA (11:06)
[2021-12-27 12:20] VITALS: BP 136/103; PULSE 96
== END 2021-12-27 12:20 | disposition home or self-care (01) ==
LOC: MW.ED 07:26
DX: K52.9 Noninfective gastroenteritis and colitis, unspecified (principal); J45.909 Unspecified asthma, uncomplicated; I25.2 Old myocardial infarction; Z79.899 Other long term (current) drug therapy; Z86.16 Personal history of COVID-19; Z87.891 Personal history of nicotine dependence
CPT/HCPCS: 36415; 74177; 80053; 81003; 83605; 83690; 85025; 87324; 96360; 99284; J2270; J3490; J7030; Q9967

== ENCOUNTER 2022-01-26 06:14 | Day surgery (SDC) | payer OTHER ==
[~2022-01-26 06:14] MED LIST: Lactated Ringers 1,000 ML IV SCH
[2022-01-26] MEDS ORDERED: Propofol 200 MG/20 ML SDV ONE ×2 (07:33→08:36)
[2022-01-26] MEDS ORDERED: Lactated Ringers 1,000 ML IV SCH (08:45)
[2022-01-26 09:05] VITALS: BP 107/66; PULSE 79
== END 2022-01-26 09:25 | disposition home or self-care (01) ==
LOC: MW.SDS 06:14
PROVIDERS: ATTEND Surgery
DX: Z12.11 Encounter for screening for malignant neoplasm of colon (principal); K52.9 Noninfective gastroenteritis and colitis, unspecified; K57.30 Diverticulosis of large intestine without perforation or abscess without bleeding; J45.909 Unspecified asthma, uncomplicated; M10.9 Gout, unspecified; F17.220 Nicotine dependence, chewing tobacco, uncomplicated; K21.9 Gastro-esophageal reflux disease without esophagitis; E78.00 Pure hypercholesterolemia, unspecified; Z80.0 Family history of malignant neoplasm of digestive organs; Z91.048 Other nonmedicinal substance allergy status; Z79.899 Other long term (current) drug therapy; Z98.890 Other specified postprocedural states; Z86.16 Personal history of COVID-19; Z90.49 Acquired absence of other specified parts of digestive tract
CPT/HCPCS: 45380; J2704; J7120

== ENCOUNTER 2022-02-02 12:14 | Emergency (ER) | payer OTHER ==
[2022-02-02] MEDS ORDERED: Sodium Chloride 0.9% 10 ML Syringe FLUSH PRN (12:34)
[2022-02-02] MEDS ORDERED: Sodium Chloride 0.9% 2.5 ML Syringe FLUSH PRN (12:34)
[2022-02-02] MEDS ORDERED: Ketorolac 30 MG/ML SDV IVPUSH ONE (12:34)
[2022-02-02] MEDS ORDERED: Sodium Chloride 0.9% 1,000 ML IV ONE (12:34)
[2022-02-02] MEDS ORDERED: Ondansetron 4 MG/2 ML SDV IVPUSH ONE (12:34)
[2022-02-02] MEDS ORDERED: metroNIDAZOLE/Normal Saline 500 MG in Premix Bag 1 BAG IV ONE (12:35)
[2022-02-02 13:18] LABS: POTASSIUM,K 4.1 mmol/L (3.5-5.1)
[2022-02-02] MEDS ORDERED: Ciprofloxacin 500 MG Tab PO ONE (14:45)
[2022-02-02 14:54] VITALS: BP 117/76; PULSE 73
== END 2022-02-02 15:02 | disposition home or self-care (01) ==
LOC: MW.ED 12:14
DX: K57.92 Diverticulitis of intestine, part unspecified, without perforation or abscess without bleeding (principal); J45.909 Unspecified asthma, uncomplicated; E78.00 Pure hypercholesterolemia, unspecified; I25.2 Old myocardial infarction; F17.210 Nicotine dependence, cigarettes, uncomplicated; E66.9 Obesity, unspecified; Z68.29 Body mass index [BMI] 29.0-29.9, adult; Z91.048 Other nonmedicinal substance allergy status; Z79.899 Other long term (current) drug therapy; Z86.16 Personal history of COVID-19
CPT/HCPCS: 36415; 74176; 80053; 81003; 85025; 96365; 96375; 99284; A9270; J1885; J2405; J3490; J7030

== ENCOUNTER 2022-08-19 07:46 | Emergency (ER) | payer OTHER ==
[2022-08-19] MEDS ORDERED: Sodium Chloride 0.9% 2.5 ML Syringe FLUSH PRN (08:18)
[2022-08-19] MEDS ORDERED: Acetaminophen 325 MG Tab PO ONE (08:18)
[2022-08-19] MEDS ORDERED: Sodium Chloride 0.9% 10 ML Syringe FLUSH PRN (08:18)
[2022-08-19 08:48] LABS: BASOPHILS PERCENT AUTO 0.6 % (0.0-1.5); EOSINOPHILS ABSOLUTE AUTO 0.1 K/uL (0.0-0.7); EOSINOPHILS PERCENT AUTO 2.1 % (0.0-7.0); HEMATOCRIT 42.9 % (38.0-50.0); HEMOGLOBIN 14.6 g/dL (13.0-17.0); LYMPHOCYTES ABSOLUTE AUTO 2.1 K/uL (0.6-2.4); LYMPHOCYTES PERCENT AUTO 32.6 % (16.0-40.0); MEAN CORPUSCULAR VOLUME 91.1 fL (80.0-98.0); MONOCYTES ABSOLUTE AUTO 0.6 K/uL (0.0-0.8); MONOCYTES PERCENT AUTO 8.4 % (0.0-15.0); NEUTROPHILS ABSOLUTE AUTO 3.7 K/uL (1.4-5.7); NEUTROPHILS PERCENT AUTO 56.3 % (48.0-80.0); NRBC ABSOLUTE 0 K/uL; PLATELET COUNT,PLT 204 K/uL (150-400); RED BLOOD CELL COUNT 4.71 M/uL (4.50-5.90); WHITE BLOOD CELL COUNT,WBC 6.57 K/uL (4.0-11.0)
[2022-08-19 09:12] LABS: A/G RATIO 1.1 (0.9-1.6); ALANINE AMINOTRANSFERASE,ALT 67 IU/L (14-63); ALBUMIN 3.7 g/dL (3.4-5.0); ALKALINE PHOSPHATASE 69 U/L (46-116); ASPARTATE AMNIOTRANSFERASE,AST 30 IU/L (15-37); BILIRUBIN TOTAL 0.3 mg/dL (0.2-1.0); BLOOD UREA NITROGEN,BUN 21 mg/dL (7.0-18.0); CALCIUM 8.8 mg/dL (8.5-10.1); CARBON DIOXIDE,CO2 26.4 mmol/L (21.0-32.0); CHLORIDE,CL 105 mmol/L (98-107); CREATININE 1.2 mg/dL (0.8-1.3); EST CRCL DRUG DOSING (CG) 78.58 mL/min; GLUCOSE RANDOM 102 mg/dL (74-106); POTASSIUM,K 4.5 mmol/L (3.5-5.1); PROTEIN TOTAL,TP 7.1 g/dL (6.4-8.2); SODIUM,NA 140 mmol/L (136-148)
[2022-08-19 09:17] LABS: ESTIMATED GFR 75 mL/min (>60)
[2022-08-19 10:14] VITALS: BP 129/90; PULSE 69
== END 2022-08-19 10:13 | disposition home or self-care (01) ==
LOC: MW.ED 07:46
DX: R07.89 Other chest pain (principal); R42 Dizziness and giddiness; E78.00 Pure hypercholesterolemia, unspecified; J44.9 Chronic obstructive pulmonary disease, unspecified; I25.2 Old myocardial infarction; Z86.16 Personal history of COVID-19; Z91.048 Other nonmedicinal substance allergy status; Z79.899 Other long term (current) drug therapy
CPT/HCPCS: 36415; 71045; 80053; 84484; 85025; 93005; 99285; A9270; J3490; 93010; 99283

== ENCOUNTER 2023-05-28 03:52 | Emergency (ER) | payer OTHER ==
[2023-05-28] MEDS: Ketorolac 30 MG/ML SDV IM ONE (04:10)
[2023-05-28] MEDS: Acetaminophen 325 MG Tab PO ONE (04:10)
[2023-05-28] MEDS: Lidocaine 4% 1 each Patch TOP PRN (04:14)
[2023-05-28 04:41] VITALS: BP 142/89; PULSE 87
== END 2023-05-28 04:41 | disposition home or self-care (01) ==
LOC: MW.ED 03:52
DX: M54.50 Low back pain, unspecified (principal); E78.00 Pure hypercholesterolemia, unspecified; J44.9 Chronic obstructive pulmonary disease, unspecified; K21.9 Gastro-esophageal reflux disease without esophagitis; Z86.16 Personal history of COVID-19; Z79.899 Other long term (current) drug therapy; Z91.048 Other nonmedicinal substance allergy status
CPT/HCPCS: 96372; 99283; A9270; J1885; 99282

== ENCOUNTER 2023-06-18 11:17 | Emergency (ER) | payer OTHER ==
[2023-06-18 12:33] VITALS: BP 137/94; PULSE 81
[2023-06-18] MEDS: metroNIDAZOLE 250 MG Tab PO ONE (16:57)
== END 2023-06-18 12:22 | disposition home or self-care (01) ==
LOC: MW.ED 11:17
DX: K57.92 Diverticulitis of intestine, part unspecified, without perforation or abscess without bleeding (principal); J44.9 Chronic obstructive pulmonary disease, unspecified; E78.00 Pure hypercholesterolemia, unspecified; K21.9 Gastro-esophageal reflux disease without esophagitis; Z79.899 Other long term (current) drug therapy; Z91.048 Other nonmedicinal substance allergy status
CPT/HCPCS: 99283

== ENCOUNTER 2023-10-01 09:55 | Day surgery (SDC) | payer OTHER ==
[2023-10-01] MEDS ORDERED: Lidocaine 2% 5 ML SDV ONE (11:05)
[2023-10-01] MEDS ORDERED: Propofol 200 MG/20 ML SDV ONE ×2 (11:05→11:37)
[2023-10-01] MEDS ORDERED: Midazolam 1 MG/ML 2 ML SDV ONE (11:16)
[2023-10-01] MEDS: Lactated Ringers 1,000 ML IV SCH (12:12)
[2023-10-01] MEDS ORDERED: Lactated Ringers 1,000 ML IV SCH (12:15)
[2023-10-01 13:25] VITALS: BP 140/84; PULSE 67
== END 2023-10-01 12:55 | disposition home or self-care (01) ==
LOC: MW.SDS 09:55
PROVIDERS: ATTEND Surgery
DX: D12.5 Benign neoplasm of sigmoid colon (principal); K57.30 Diverticulosis of large intestine without perforation or abscess without bleeding; K52.9 Noninfective gastroenteritis and colitis, unspecified; J45.909 Unspecified asthma, uncomplicated; E78.5 Hyperlipidemia, unspecified; E78.1 Pure hyperglyceridemia; F17.220 Nicotine dependence, chewing tobacco, uncomplicated; Z88.8 Allergy status to other drugs, medicaments and biological substances; Z86.16 Personal history of COVID-19; Z79.899 Other long term (current) drug therapy
CPT/HCPCS: 45380; J2250; J2704; J7120; 00811; J3490

== ENCOUNTER 2025-02-10 19:31 | Emergency (ER) | payer OTHER ==
[2025-02-10] MEDS ORDERED: Naloxone 0.4 MG/ML SDV IVPUSH PRN (19:59)
[2025-02-10 20:12] LABS: BASOPHILS ABSOLUTE AUTO 0.05 K/uL (0.00-0.20); BASOPHILS PERCENT AUTO 0.6 % (0.0-1.0); EOSINOPHILS ABSOLUTE AUTO 0.18 K/uL (0.00-0.45); EOSINOPHILS PERCENT AUTO 2.2 % (0.0-6.0); IMMATURE GRAN ABSOLUTE AUTO 0.02 K/uL (0.00-0.05); IMMATURE GRAN PERCENT AUTO 0.2 % (0.0-0.4); LYMPHOCYTES ABSOLUTE AUTO 3.10 K/uL (1.00-4.80); LYMPHOCYTES PERCENT AUTO 38.4 % (24.0-44.0); MEAN PLATELET VOLUME 10.2 fL (9.4-12.4); MONOCYTES ABSOLUTE AUTO 0.63 K/uL (0.00-0.80); MONOCYTES PERCENT AUTO 7.8 % (0.0-8.0); NEUTROPHILS ABSOLUTE AUTO 4.09 K/uL (1.80-7.70); NEUTROPHILS PERCENT AUTO 50.8 % (41.0-71.0); NRBC ABSOLUTE 0.00 K/uL (0.00-0.02); NRBC PERCENT 0.0 /100WBC (0.0-0.2); PLATELET COUNT,PLT 215 K/uL (150-400); RED BLOOD CELL COUNT 4.61 M/uL (4.52-5.90); WHITE BLOOD CELL COUNT,WBC 8.07 K/uL (3.9-11.3)
[2025-02-10] MEDS: Ondansetron 4 MG/2 ML SDV IVPUSH ONE (20:14)
[2025-02-10] MEDS: Sodium Chloride 0.9% 2.5 ML Syringe FLUSH PRN (20:16)
[2025-02-10] MEDS: Sodium Chloride 0.9% 10 ML Syringe FLUSH PRN (20:16)
[2025-02-10] MEDS: Iopamidol 755 MG/ML 500 ML Multipack Bottle IVPUSH ONE (20:33)
[2025-02-10 20:37] LABS: A/G RATIO 1.2 (0.9-1.6); ALANINE AMINOTRANSFERASE,ALT 28.0 IU/L (14-63); ASPARTATE AMNIOTRANSFERASE,AST 20.0 IU/L (15-37); BILIRUBIN TOTAL 0.2 mg/dL (0.2-1.0); BLOOD UREA NITROGEN,BUN 18.0 mg/dL (7.0-18.0); CARBON DIOXIDE,CO2 27.0 mmol/L (21.0-32.0); CHLORIDE,CL 104.0 mmol/L (98-107); CREATININE 1.1 mg/dL (0.8-1.3); EST CRCL DRUG DOSING (CG) 83.88 mL/min; ESTIMATED GFR 82.0 mL/min (>60); GLUCOSE RANDOM 109.0 mg/dL (74-106); POTASSIUM,K 4.2 mmol/L (3.5-5.1); PROTEIN TOTAL,TP 6.9 g/dL (6.4-8.2); SODIUM,NA 139.0 mmol/L (136-148)
[2025-02-10 21:16] LABS: APPEARANCE,URINE CLEAR; GLUCOSE,URINE NEGATIVE (NEGATIVE); OCCULT BLOOD,URINE NEGATIVE (NEGATIVE)
[2025-02-10 21:48] VITALS: BP 114/78; PULSE 64
== END 2025-02-10 21:47 | disposition home or self-care (01) ==
LOC: MW.ED 19:31
DX: K59.00 Constipation, unspecified (principal); E86.0 Dehydration; J44.9 Chronic obstructive pulmonary disease, unspecified; Z87.891 Personal history of nicotine dependence; Z91.048 Other nonmedicinal substance allergy status
CPT/HCPCS: 36415; 74177; 80053; 81003; 83690; 83735; 85025; 96361; 96374; 96375; 99284; J2270; J2405; J7030; Q9967; 99283